=== PATIENT | male | born 1995 | race Caucasian/White ===

== ENCOUNTER 2016-06-17 17:17 | Emergency (ER) | payer OTHER ==
[~2016-06-17] VITALS: Ht 180.3 cm; Wt 104.3 kg
[~2016-06-17 17:17] MED LIST: CYCLOBENZAPRINE10 M1 PO; FLEXERIL10 MG PO; HYDROCODONE/ACE1 TA1 PO; MOBIC15 M1 PO; TRAMADOL HCL50 M1 PO; VICODIN5-300 PO
[2016-06-17 17:23] VITALS: BP 130/85
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
--- NOTE | 2016-06-17 18:04 | RADIOLOGY REPORT ---
EXAMINATION: XR SHOULDER, LEFT CLINICAL INFORMATION: Pain. No history of trauma. COMPARISON: Chest x-ray dated 06/10/2009 TECHNIQUE: 4 views of the left shoulder. FINDINGS: Normal bony mineralization. No evidence of acute fracture or dislocation. Normal appearance of the acromioclavicular and glenohumeral joints. Normal round contour of the humeral head. Visualized left ribs and visualized portions of the left lung appear unremarkable. IMPRESSION: Normal left shoulder.
[2016-06-17] MEDS ORDERED: TRAMADOL HCL50 M1 PO (18:17)
[2016-06-17] MEDS ORDERED: IBUPROFEN600 M1 PO (18:17)
[2016-06-17] MEDS ORDERED: CYCLOBENZAPRINE10 M1 PO (18:17)
== END 2016-06-17 18:34 ==
LOC: ERH 17:17
DX: S46.912A Strain of unspecified muscle, fascia and tendon at shoulder and upper arm level, left arm, initial encounter (principal); X58.XXXA Exposure to other specified factors, initial encounter; Y93.H1 Activity, digging, shoveling and raking
CPT/HCPCS: 73030-LT

== ENCOUNTER 2016-10-04 14:30 | Inpatient (IN) | payer OTHER ==
[~2016-10-04] VITALS: Ht 177.8 cm; Wt 105.7 kg
[~2016-10-04 14:30] MED LIST changes: +IBUPROFEN600 M1 PO
--- NOTE | 2016-10-04 14:30 | NUR ---
TRIAGE: 20 Y/O MALE BIBA FROM HOME. LAST SEEN LAST NIGHT. UPON EMS ARRIVAL, PATIENT UNRESPONSIVE WITH AGONAL RESPIRATIONS. PATIENT GIVEN INTRANASAL NARCAN AT THAT TIME. UNKNOWN DRUG USE. PUPILS PINPOINT UPON ARRIVAL. BAG VALVE MASK AT PRESENT. EMS PREVIOUSLY UNABLE TO INTUBATE IN THE FIELD. INTUBATION TRAY AND RSI MEDICATIONS AT BEDSIDE FOR DR JONES TO ATTEMPT INTUBATION.
--- NOTE | 2016-10-04 14:40 | NUR ---
SECOND IV EST #18 TO LAC - DIFFICULT ACCESS NOTED. 2 SST, 2 LAV, 1 BLUE, 1 BREY TOP TUBE SENT TO LAB. MUÑIZ INSERTED PER CRITICALLY ILL PATIENT ORDERS. URINE TRIO SENT TO LAB. DR JONES REMAINS AT BEDSIDE. RESPIRATORY REMAINS AT BEDSIDE. VENTILATOR CONNECTED. RESP RATE 16; 80% O2, SPO2 94-96%.
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
--- NOTE | 2016-10-04 14:59 | NUR ---
10MG VECURONIUM ADMINISTERED PER DR JONES. .5 MG ATIVAN ADMINISTERED PER DR JONES.
[2016-10-04 15:05] LABS: ABSOLUTE BASOPHIL COUNT 0 /CUMM (0.0-0.2); ABSOLUTE EOSINOPHIL COUNT 0 /CUMM (0.0-0.7); ABSOLUTE MONOCYTE COUNT 0.1 /CUMM (0.10-0.60); BASOPHIL % 0.1 % (0.0-2.0); EOSINOPHIL % 0.1 % (0-5); HEMATOCRIT 45.3 % (42-52); MEAN CORPUSCULAR HGB 29.6 PG (27.0-31.0); MEAN CORPUSCULAR HGB CONC 32.6 G/DL (33.0-37.0); MEAN PLATELET VOLUME 8.8 FL (7.4-10.4); PLATELET COUNT 361 /CUMM (130-400); RBC DISTRIBUTION WIDTH 13.2 % (11.5-14.5); RED BLOOD CELL CT 4.98 /CUMM (4.70-6.10); WHITE BLOOD CELL COUNT 11.1 /CUMM (4.8-10.8)
[2016-10-04 15:13] LABS: GRANULOCYTE % 89.5 % (42.2-75.2)
--- NOTE | 2016-10-04 15:24 | NUR ---
CRITICAL TEST RESULTS [id number] MIKKI BRICE 20 M TESTS AND RESULTS: potassium 6.3; lactic acid 3.4 Results received and read back by: CAR LANE Results received date and time: 10/04/16 1525 The following provider was notified of the results, and read the results back: dr mathias Notified date and time: 10/04/16 at 1523
--- NOTE | 2016-10-04 15:34 | NUR ---
1 mg ativan and 10mg labetolol administered at this time.
--- NOTE | 2016-10-04 15:46 | NUR ---
INCREASED TO 100% O2 ON VENTILATOR. SPO2 84-85%. RESP RATE 16. REMAINS SEDATED. REMAINS ON READINESS PARAPROFESSIONAL: SINUS TACHYCARDIA, RATE 112.
--- NOTE | 2016-10-04 15:55 | RADIOLOGY REPORT ---
EXAMINATION: XR CHEST PORTABLE CLINICAL INFORMATION: Status post ET tube placement. COMPARISON: None. TECHNIQUE: Portable frontal view of the chest was obtained. FINDINGS: The tip of the endotracheal tube is located within the proximal part of the right main bronchus. Bilateral diffuse nonspecific airspace opacities are noted predominantly at both mid to lower lung mora, may represent edema versus infection. There is no definite pleural effusion present. The cardiomediastinal silhouette is within normal limits, given the technique. IMPRESSION: The tip of the endotracheal tube is located within the proximal part of the right main bronchus and needs to be repositioned. Nonspecific bilateral airspace disease. This critical result was discussed with Dr. Bajwa at 3:50 PM on 10/04/2016 and it was ascertained that the content and urgency of the report was understood at the time of direct communication.
--- NOTE | 2016-10-04 15:57 | NUR ---
ATTEMPT FOR ANOTHER BLOOD PRESSURE, NO BLOOD PRESSURE AUSCULTATED. NO PULSES NOTED. CPR INITIATED.
--- NOTE | 2016-10-04 15:59 | NUR ---
1 ROUND EPINEPHRINE INITIATED. CPR CONTINUES.
--- NOTE | 2016-10-04 16:01 | NUR ---
PULSES PALPATED. CPR ENDED AT THIS TIME. ET TUBE REPOSITIONED AT 24CM ON THE RIGHT. SPO2 87%
--- NOTE | 2016-10-04 16:18 | NUR ---
PATIENT APPEARS TO BE MORE ALERT, FIGHTING THE ET TUBE, BITING THE ET TUBE. 5MG VECURONIUM ADMIN PER DR JONES. RESP THERAPY REMAINS AT BEDSIDE. ATTMEPTING ABG AT THIS TIME. NORMAL SALINE BOLUSES CONTINUE TO INFUSE.
--- NOTE | 2016-10-04 16:29 | NUR ---
ABG RESULTED. DR JONES AND DR KRISHNAN AWARE.
--- NOTE | 2016-10-04 16:33 | NUR ---
LEVOPHED DRIP INITIATED PERIPHERALLY AT THIS TIME. 5MCG/MIN. DR JONES AT BEDSIDE TO ATTEMPT CENTRAL LINE ACCESS VIA RIGHT GROIN.
--- NOTE | 2016-10-04 16:43 | NUR ---
VENTILATOR RATE INCREASED TO 24/MIN BY RESP THERAPY PER DR KRISHNAN SECONDARY TO ABG RESULTS.
--- NOTE | 2016-10-04 16:49 | NUR ---
CENTRAL LINE ANCHORED AT THIS TIME BY DR JONES - RIGHT JANG.
--- NOTE | 2016-10-04 16:50 | NUR ---
levophed drip increased to 7mcg/min
--- NOTE | 2016-10-04 16:55 | NUR ---
levophed drip increased to 9 mcg/min.
--- NOTE | 2016-10-04 17:00 | NUR ---
levophed drip increased to 11 mcg/ min.
--- NOTE | 2016-10-04 17:20 | NUR ---
ICU HOUSESTAFF AT BEDSIDE FOR EVAL.
--- NOTE | 2016-10-04 17:44 | NUR ---
LEVOPHED DRIP INCREASED TO 19MCG/MIN.
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
--- NOTE | 2016-10-04 18:05 | NUR ---
DR KRISHNAN AT BEDSIDE. INFORMED LEVOPHED DRI AT 19MCG/MIN. AZITHROMYCIN INFUSING.
--- NOTE | 2016-10-04 18:08 | NUR ---
LEVOPHED DRIP MAXED OUT PER PROTOCOL AT 20MCG/MIN.
--- NOTE | 2016-10-04 18:24 | NUR ---
VASOPRESSIN DRIP INITIATED AT THIS TIME. PRESSURE 54/PALP VIA DOPPLER.
--- NOTE | 2016-10-04 18:38 | NUR ---
SODIUM BICARB AMP ADMIN PER DR KRISHNAN.
--- NOTE | 2016-10-04 18:48 | NUR ---
RESP THERAPY AT BEDSIDE TO OBTAIN REPEAT ABG.
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
--- NOTE | 2016-10-04 19:31 | NUR ---
Emergency Dept UC Admit Note: To be admitted to [facility] by DR KRISHNAN with DRUG OVERDOSE as the diagnosis, to ICU location. 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
--- NOTE | 2016-10-04 19:45 | NUR ---
Provided supportive and prayerful contact to pt's family. Rogelio
--- NOTE | 2016-10-04 19:47 | NUR ---
REPORT CALLED TO GENTRY PATTERSON.
--- NOTE | 2016-10-04 19:50 | RADIOLOGY REPORT ---
EXAMINATION: XR PORTABLE CHEST CLINICAL INFORMATION: Aspiration pneumonia. Respiratory failure. COMPARISON: Multiple priors, most recent chest radiograph done earlier the same day at 3:13 p.m. TECHNIQUE: Portable frontal view of the chest was obtained. FINDINGS: The endotracheal tube has been retracted and the tip now lies approximately 4.1 cm proximal to the mercy. An endogastric tube is seen extending below the left hemidiaphragm. There are bilateral patchy airspace opacities, unchanged since the prior examination. No pleural effusion or pneumothorax. Stable cardiomediastinal silhouette. IMPRESSION: 1. Interval retraction of the endotracheal tube which now lies approximately 4.1 cm proximal to the mercy. Placement of an endogastric tube which is in good position. 2. Unchanged bilateral patchy airspace opacities.
--- NOTE | 2016-10-04 19:59 | NUR ---
RESP THERAPY AT BEDSIDE TO ASSIST WITH TRANSPORT. 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 REMAINS SEDATED AND MEDICALLY RESTRAINED PER ORDERS. ABG OPBTAINED AT THIS TIME. REPEAT BLOODWORK OBTAINED AT THIS TIME. VASOPRESSIN AND LEVOPHED CONTINUE TO INFUSE.
--- NOTE | 2016-10-04 20:06 | NUR ---
PT TRANSPORTED TO FLOOR
--- NOTE | 2016-10-04 20:30 | NUR ---
ADMISSION NOTE- Patient arrives from ER on stretcher with TELEHEALTH COORDINATOR. Transferred to ICU bed and placed on monitors without incident. Patient is unresponsive, SAS-1 at this time. Pupils are pinpoint and fixed. Patient is ST on monitor and BP is 80's systolic via autocuff and doppler. Tyrell gtt initiated at this time. Patient arrives intubated with #8 to the Right at 23cm, settings are: AC- 24, TV- 600, FiO2- 100% and PEEP of 10. There are clear thin secretions noted orally. OGT is in place at 58cm at the lip. Patient is diaphoretic and rectal temp is found to be 101.6. There is an IV in the LAC that is patent, and RG TLC is patent. Mother and father are at the bedside and are updated on patient status and plan of care. Patient does have a prince in place with clear, light wolf urine noted. No acute distress at this time. Will cont to monitor.
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
--- NOTE | 2016-10-04 21:03 | CT SCAN REPORT ---
EXAMINATION: CT CHEST WITHOUT CONTRAST CT ABDOMEN AND PELVIS WITHOUT CONTRAST CLINICAL INFORMATION: Unresponsive episode. Evaluate for aspiration pneumonia, intra-abdominal process. Lactic acidosis. Overdose. COMPARISON: Multiple priors, most recent chest radiograph done earlier the same day. TECHNIQUE: Contiguous axial thin section helical images of the chest, abdomen and pelvis were performed without contrast. The data set was reformatted in the coronal and sagittal planes and reviewed on an independent workstation. DLP: 1599.31 mGy-cm FINDINGS: LUNGS: There are large bilateral lower lobe airspace consolidations with additional patchy airspace consolidations within the right middle lobe and bilateral upper lobes. These findings are consistent with pneumonia and could represent aspiration pneumonia in the appropriate clinical setting. MEDIASTINUM: The endotracheal tube is noted with its tip terminating above the mercy. A nasogastric tube is seen with its tip within the stomach. There is no cardiomegaly or pericardial effusion. No mediastinal or hilar lymphadenopathy is noted. PLEURA: There is no pleural effusion or pneumothorax. AXILLA: No lymphadenopathy. LIVER, GALLBLADDER, BILIARY TREE: There is no focal hepatic lesion. There is no intrahepatic biliary ductal dilatation. The gallbladder is unremarkable with no radiopaque stones, gallbladder wall thickening, or pericholecystic free fluid. PANCREAS: There is mild nonspecific fat stranding adjacent to the tail of the pancreas. This could represent pancreatitis in the appropriate clinical setting. Correlation with amylase and lipase are recommended. SPLEEN: The spleen is unremarkable. A 1.5 cm splenule is noted. ADRENAL GLANDS: There is mild nonspecific fat stranding adjacent to the left adrenal gland. This could be related to the pancreas. The right adrenal gland is unremarkable. KIDNEYS, URETERS AND BLADDER: The kidneys are normal in size and attenuation. No renal lesion is identified. There is no hydronephrosis or nephrolithiasis. There is no hydroureter. The urinary bladder is collapsed with a Castanon catheter in place. BOWEL LOOPS: An enteric gastric tube is seen with its tip terminating within the stomach. There is no small or large bowel obstruction. The appendix is unremarkable. There is no intra-abdominal free air or free fluid. LYMPHOVASCULAR STRUCTURES: There is no significant lymphadenopathy. The abdominal aorta is nondilated. A central venous catheter is seen within the right inguinal vein. PELVIC VISCERA: The prostate and seminal vesicles are unremarkable. BONES: There are bone islands within the pelvis. No fracture is identified. ADDITIONAL FINDINGS: None IMPRESSION: 1. Large bilateral lower lobe airspace consolidations with additional patchy consolidations within the right middle lobe and bilateral upper lobes. These findings are consistent with pneumonia and could represent aspiration pneumonia in the appropriate clinical setting. 2. Endotracheal tube and nasogastric tube in proper position. Right inguinal pain central venous catheter in good position. 3. Nonspecific fat stranding adjacent to the tail of the pancreas. This could represent pancreatitis in the appropriate clinical setting. Correlation with amylase and lipase are recommended. 4. Nonspecific fat stranding adjacent to the left adrenal gland. This could be related to the pancreas.
[2016-10-05 02:36] LABS: PT 15.1 SEC (9.4-12.5)
--- NOTE | 2016-10-05 03:42 | NUR ---
Late entry 2044- On admission to ICU, Narcan gtt initiated for SAS of 1 and is increased per protocol. At approximately 2215- patient awakens and is SAS 7, very dangerously agitated. He is kicking and lifting self off of bed, pulling at restraints and fully awake. He is difficult to orient and console at this time. Parents at bedside. At this time, 1 time dose of vecuronium is given and fentanyl gtt is initiated per protocol. After initial Fentanyl bolus is given patient SAS is 3. Pupils checked at this time and are found to be 6mm, equal and sluggish but reactive to light. Soft mainor wrists remain in place, all vasopressors remain on. Will cont to monitor.
[2016-10-05 05:07] LABS: ABSOLUTE BASOPHIL COUNT 0 /CUMM (0.0-0.2); ABSOLUTE EOSINOPHIL COUNT 0 /CUMM (0.0-0.7); BASOPHIL % 0 % (0.0-2.0); EOSINOPHIL % 0 % (0-5); MEAN CORPUSCULAR HGB CONC 33.7 G/DL (33.0-37.0)
[2016-10-05 05:13] LABS: ABSOLUTE GRANULOCYTE CT 18.7 /CUMM (1.4-6.5); ABSOLUTE LYMPH COUNT 0.9 /CUMM (1.2-3.4); ABSOLUTE MONOCYTE COUNT 0.7 /CUMM (0.10-0.60); GRANULOCYTE % 91.9 % (42.2-75.2); MEAN CORPUSCULAR VOLUME 89.1 FL (80.0-94.0); MEAN PLATELET VOLUME 9.3 FL (7.4-10.4); PLATELET COUNT 277 /CUMM (130-400); RED BLOOD CELL CT 4.46 /CUMM (4.70-6.10)
[2016-10-05 05:20] LABS: WHITE BLOOD CELL COUNT 20.3 /CUMM (4.8-10.8)
[2016-10-05 05:22] LABS: HEMATOCRIT 39.7 % (42-52)
--- NOTE | 2016-10-05 06:00 | RADIOLOGY REPORT ---
EXAMINATION: XR PORTABLE CHEST CLINICAL INFORMATION: Endotracheal tube positioning. COMPARISON: 10/04/2016 TECHNIQUE: Portable frontal view of the chest was obtained. FINDINGS: The endotracheal tube terminates 5 cm above the mercy. The enteric tube extends into the stomach. Cardiac leads overlie the chest. Low lung volumes with hazy basilar opacities. This is similar to previous. No pneumothorax. The cardiomediastinal silhouette is within normal limits. IMPRESSION: Endotracheal tube terminating 5 cm above the mercy. Persistent hazy opacities of the mid to lower lungs, more completely evaluated on the recent CT.
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
[2016-10-05 08:00] VITALS: BP 120/76
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
--- NOTE | 2016-10-05 09:31 | ULTRASOUND REPORT ---
EXAMINATION: DOPPLER VENOUS ULTRASOUND UPPER EXTREMITY, RIGHT CLINICAL INFORMATION: Right upper extremity swelling. COMPARISON: None. TECHNIQUE: Grayscale, Doppler and spectral analysis of the upper extremity and neck was performed. FINDINGS: There is no evidence for a deep venous thrombosis within the visualized upper extremity and neck veins. There is normal flow, compression and augmentation. There is thrombus identified within the cephalic vein within the upper arm. IMPRESSION: No evidence for deep venous thrombosis within the right upper extremity. There is thrombus identified within the cephalic vein. Please note that this is not considered to be a superficial vein of the upper extremity.
--- NOTE | 2016-10-05 09:50 | PN- CRCU ---
Subjective HPI/Critical Care Issues: Patient seen and examined at bedside this AM. He remains intubated but is more active than on last evaluation. He has been titrated off of two pressors and remains on levophed. He has also been given IV vecuronium for agitation. He continues on bicarb drip, fentanyl drip, unasyn, and NS at 150 cc/h. His parents at bedside 24 Hour Events: community health nurse: No overnight events. Vital signs last 24 hours: T 100.4-101.6, HR 98-106, RR 24, BP 96-153/53-71, O2 saturation 98-100% on AC 24 TV 600 FiO2 70 10 PEEP. Total intake last 24 hours: 3787 cc Total output last 24 hours: 1500 cc Objective Current Medications: Current Medications Sig/Kendra Start time Last Medication Dose Route Stop Time Status Admin Acetaminophen 325 MG Q6P PRN 10/04 1830 AC PO Ampicillin Sodium/ 0 .STK-MED ONE 10/04 192 DC Sulbactam Sodium .ROUTE Ampicillin Sodium/ 3,000 MG Q6 10/04 1911 AC 10/05 Sulbactam Sodium IV 0516 Sodium Chloride 100 ML Azithromycin 500 MG ONCE ONE 10/04 1600 DC 10/04 Sodium Chloride 250 ML IV 10/04 1659 1750 Calcium Gluconate 0 .STK-MED ONE 10/04 1925 DC IV Calcium Gluconate 1 GM ONCE ONE 10/04 1900 DC 10/04 Sodium Chloride 100 ML IV 10/04 195 1937 Ceftriaxone Sodium 0 .STK-MED ONE 10/04 1802 DC .ROUTE Ceftriaxone Sodium 1,000 MG ONCE ONE 10/04 1600 DC 10/04 IV 10/04 1601 1750 Dextrose 25 GM ONCE ONE 10/04 1900 DC 10/04 IV 10/04 190 1930 Epinephrine 1 MG ONCE ONE 10/04 1630 DC 10/04 IV 10/04 1631 1641 Epinephrine 0.5 MG ONCE ONE 10/04 1630 DC 10/04 IV 10/04 1631 1641 Etomidate 0 .STK-MED ONE 10/04 1528 DC IV Fentanyl Citrate 1,000 MCG Q24H 10/04 1930 AC 10/05 Dextrose/Water 250 ML IV 0349 Fentanyl Citrate 0 .STK-MED ONE 10/04 1930 DC .ROUTE Heparin Sodium 5,000 UNIT Q8 10/04 2200 AC 10/05 (Porcine) SC 0528 Hydrocortisone 100 MG Q8 10/04 2200 AC 10/05 Sodium Succinate IV 10/05 1401 0528 Hydromorphone HCl 0.5 MG Q4P PRN 10/04 1830 AC IV Insulin Human Regular 10 UNITS ONCE ONE 10/04 1900 DC 10/04 IV 10/04 1901 1930 Ketorolac 15 MG Q6P PRN 10/04 1830 AC Tromethamine IV Labetalol HCl 0 .STK-MED ONE 10/04 1533 DC IV Labetalol HCl 10 MG ONCE ONE 10/04 1530 DC 10/04 IV 10/04 1531 1534 Levetiracetam 500 MG Q12 PRN 10/04 1915 AC N/A 1 UNIT IV Lorazepam 0 .STK-MED ONE 10/04 1821 DC .ROUTE Lorazepam 0 .STK-MED ONE 10/04 1533 DC .ROUTE Lorazepam 1 MG ONCE ONE 10/04 1530 DC 10/04 IV 10/04 1531 1534 Lorazepam 0 .STK-MED ONE 10/04 1502 DC .ROUTE Lorazepam 0.5 MG ONCE ONE 10/04 1500 DC 10/04 IV 10/04 1501 1501 Magnesium Sulfate 1 GM Q2H 10/05 0730 AC 10/05 Dextrose/Water 100 ML IV 10/05 1129 0849 Naloxone HCl 4 MG Q24H 10/04 1900 DC Sodium Chloride 1,000 ML IV Naloxone HCl 4 MG Q24H 10/04 1845 DC 10/04 Sodium Chloride 1,000 ML IV 2053 Naloxone HCl 2 MG ONCE ONE 10/04 1500 DC 10/04 IV 10/04 1501 1454 Naloxone HCl 4 MG ONCE ONE 10/04 1500 CAN Sodium Chloride 1,000 ML IV 10/04 1501 Naloxone HCl 0 .STK-MED ONE 10/04 1447 DC .ROUTE Norepinephrine 4 MG Q24H 10/05 0700 AC 10/05 Sodium Chloride 250 ML IV 0851 Norepinephrine 4 MG .STK-MED ONE 10/04 2016 DC IV 10/04 2017 Norepinephrine 4 MG Q24H 10/04 1730 DC 10/05 Sodium Chloride 250 ML IV 0346 Norepinephrine 8 MG Q24H 10/04 1630 DC Sodium Chloride 250 ML IV Norepinephrine 0 .STK-MED ONE 10/04 1610 DC IV Pantoprazole Sodium 0 .STK-MED ONE 10/04 1925 DC IV Pantoprazole Sodium 40 MG DAILY 10/04 1905 AC 10/05 IV 0855 Phenylephrine HCl 40 MG .STK-MED ONE 10/04 2043 DC IM 10/04 2044 Phenylephrine HCl 40 MG Q24H 10/04 1930 DC 10/04 Sodium Chloride 250 ML IV 2044 Sodium Bicarbonate 150 MEQ CONTINOUS INFUSION 10/04 2245 AC 10/05 Dextrose/Water 1,000 ML IV 0230 Sodium Bicarbonate 75 MEQ CONTINOUS INFUSION 10/04 1930 DC 10/04 Sodium Chloride 1,000 ML IV 2053 Sodium Bicarbonate 50 MEQ ONCE ONE 10/04 1845 DC 10/04 IV 10/04 1846 1840 Sodium Chloride 1,000 ML Q6H 10/04 1900 AC 10/05 IV 0851 Sodium Chloride 1,000 ML BOLUS ONE 10/04 1500 DC 10/04 IV 10/04 1559 1501 Vasopressin 40 UNITS Q16H 10/04 1815 DC 10/04 Sodium Chloride 100 ML IV 1824 Vecuronium Kula 10 MG ONCE PRN 10/05 0230 AC IV Vecuronium Kula 10 MG Q24H 10/05 0100 DC Dextrose/Water 100 ML IV Vecuronium Kula 10 MG ONCE PRN 10/04 2345 AC 10/05 IV 0021 Vecuronium Kula 10 MG ONCE ONE 10/04 2245 DC 10/04 IV 10/04 2246 2237 Vecuronium Kula 10 MG ONCE PRN 10/04 1930 AC 10/04 IV 1945 Vecuronium Kula 0 .STK-MED ONE 10/04 1620 DC IV Vecuronium Kula 5 MG ONCE ONE 10/04 1615 DC 10/04 IV 10/04 1616 1641 Vecuronium Kula 0 .STK-MED ONE 10/04 1528 DC IV Vecuronium Kula 10 MG ONCE ONE 10/04 1500 DC 10/04 IV 10/04 1501 1501 Vital Signs & I&O Last 24 Hrs of Vitals and I&O: Vital Signs Date Time Temp Pulse Resp B/P B/P Pulse O2 O2 Flow FiO2 Mean Ox Delivery Rate 10/05 0809 70 10/05 0613 70 10/05 0400 100 Ventilator 70% 10/05 0346 99 161/64 10/05 0254 70 10/05 0105 90 10/05 0009 108 114/64 10/05 0000 100 Ventilator 90% 10/04 2220 90 10/04 2044 105 74/58 10/04 2030 99 Ventilator 100% 10/04 1950 116/57 10/04 1922 98.6 114 24 81/50 99 Ventilator 100% 10/04 1902 116 24 70/45 99 Ventilator 100% 10/04 1850 121 24 75/37 99 Ventilator 100% 10/04 1847 133 24 67/34 99 Ventilator 100% 10/04 1835 99.6 118 24 87/39 97 Ventilator 100% 10/04 1824 124 24 54/00 97 Ventilator 100% 10/04 1815 99.0 115 24 50/00 96 Ventilator 100% 10/04 1807 98.8 117 54/00 10/04 1800 115 52/00 10/04 1752 122 50/00 10/04 1744 117 48/00 10/04 1738 98.0 122 18 50/00 93 Ventilator 100% 10/04 1732 117 50/00 10/04 1725 112 50/0 10/04 1716 117 48/00 10/04 1709 115 50/00 10/04 1700 115 48/00 10/04 1651 111 48/00 10/04 1643 117 48/00 10/04 1638 115 46/00 10/04 1633 98.0 112 20 48/00 10/04 1630 98.0 109 20 48/00 92 Ventilator 100% 10/04 1610 100 10/04 1610 110 54/00 10/04 1600 0 10/04 1550 100 10/04 1534 141 16 170/85 10/04 1523 80 10/04 1517 141 16 170/85 94 Ventilator 80% 10/04 1502 140 184/96 10/04 1436 98.2 130 10 82/42 10/04 1435 94 Ventilator 80% Intake & Output 10/05 1600 10/05 0800 10/05 0000 Intake Total 3070 711 Output Total 1000 500 Balance 2070 211 Intake, IV 3070 711 Output, Urine 1000 500 Patient 253 lb Weight Weight Bed scale Measurement Method Laboratory Tests 10/05 10/05 0800 0430 Chemistry Sodium (137 - 145 mmol/L) 139 Potassium (3.5 - 5.1 mmol/L) 4.3 Chloride (98 - 107 mmol/L) 106 Carbon Dioxide (22 - 30 mmol/L) 20 L Anion Gap (5 - 16) 13 BUN (9 - 20 mg/dL) 31 H Creatinine (0.7 - 1.2 mg/dL) 2.1 H Estimated GFR (>60 ml/min) 40 L Glucose (65 - 99 mg/dL) 132 H Calcium (8.4 - 10.2 mg/dL) 7.4 L Phosphorus (2.5 - 4.5 mg/dL) 3.1 Magnesium (1.6 - 2.3 mg/dL) 1.5 L Total Bilirubin (0.2 - 1.3 mg/dL) 1.8 H AST (17 - 59 U/L) 603 H ALT (21 - 72 U/L) 583 H Troponin I Pending Albumin (3.5 - 5.0 g/dL) 2.8 L Hematology CBC w Diff MAN DIFF ORDERED WBC (4.8 - 10.8 /CUMM) 20.3 H RBC (4.70 - 6.10 /CUMM) 4.46 L Hgb (14.0 - 18.0 G/DL) 13.4 L Hct (42 - 52 %) 39.7 L MCV (80.0 - 94.0 FL) 89.1 MCH (27.0 - 31.0 PG) 30.0 RDW (11.5 - 14.5 %) 13.0 Plt Count (130 - 400 /CUMM) 277 MPV (7.4 - 10.4 FL) 9.3 Gran % (42.2 - 75.2 %) 91.9 H Lymphocytes % (20.5 - 51.1 %) 4.5 L Monocytes % (1.7 - 9.3 %) 3.6 Eosinophils % (0 - 5 %) 0 Basophils % (0.0 - 2.0 %) 0 L Absolute Granulocytes (1.4 - 6.5 /CUMM) 18.7 H Segmented Neutrophils (42.2 - 75.2 %) 65 Band Neutrophils (0.0 - 5.0 %) 25 H Absolute Lymphocytes (1.2 - 3.4 /CUMM) 0.9 L Lymphocytes (20.5 - 51.1 %) 1 L Monocytes (1.7 - 9.3 %) 5 Absolute Monocytes (0.10 - 0.60 /CUMM) 0.7 H Absolute Eosinophils (0.0 - 0.7 /CUMM) 0 Absolute Basophils (0.0 - 0.2 /CUMM) 0 Metamyelocytes (0.0 - 1.0 %) 4 H Platelet Estimate (ADEQUATE) ADEQUATE Basophilic Stippling 1+ PUBS MCHC (33.0 - 37.0 G/DL) 33.7 10/05 10/05 10/04 10/04 0330 0215 2250 2250 Blood Gas pH (7.35 - 7.45 PH) 7.33 L pCO2 (35 - 45 TORR) 29 L pO2 (80 - 100 TORR) 94 HCO3 (21 - 28 MEQ/L) 15 L ABG O2 Sat (Measured) (>96.0 %) 97.0 P-50 (Temp Corrected) N Carboxyhemoglobin (1.5 - 5.0 %) 0.3 L O2 Concentration % .70 Respiration Rate (BPM) 24 O2 Delivery Method VENT Vent Mode A/C Expiratory Pressure (CMH2O/P) 10 Tidal Volume (CC) 600 Chemistry Sodium (137 - 145 mmol/L) 136 L Potassium (3.5 - 5.1 mmol/L) 5.1 5.3 H Chloride (98 - 107 mmol/L) 107 Carbon Dioxide (22 - 30 mmol/L) 17 L Anion Gap (5 - 16) 12 BUN (9 - 20 mg/dL) 38 H Creatinine (0.7 - 1.2 mg/dL) 3.0 H Estimated GFR (>60 ml/min) 27 L Glucose (65 - 99 mg/dL) 91 Lactic Acid (0.7 - 2.1 mmol/L) 2.6 H 3.0 H Calcium (8.4 - 10.2 mg/dL) 7.5 L Phosphorus (2.5 - 4.5 mg/dL) 4.5 Magnesium (1.6 - 2.3 mg/dL) 1.6 Total Bilirubin (0.2 - 1.3 mg/dL) 1.5 H AST (17 - 59 U/L) 542 H ALT (21 - 72 U/L) 507 H Troponin I (<0.11 ng/ml) 1.46 *H Albumin (3.5 - 5.0 g/dL) 2.9 L Coagulation PT (9.4 - 12.5 SEC) 15.1 H INR (0.90 - 1.17) 1.44 H Miscellaneous Phlebotomy Draw Site LEFT RADIAL 10/04 Blood Gas pH (7.35 - 7.45 PH) 7.18 *L pCO2 (35 - 45 TORR) 41 pO2 (80 - 100 TORR) 108 H HCO3 (21 - 28 MEQ/L) 15 L ABG O2 Sat (Measured) (>96.0 %) 96.0 P-50 (Temp Corrected) N Carboxyhemoglobin (1.5 - 5.0 %) 0.7 L O2 Concentration % 100% Temperature (97.0 - 100.0 FARH) 97.7 Respiration Rate (BPM) 24 O2 Delivery Method ESPRIT Vent Mode AC Expiratory Pressure (CMH2O/P) 10 Tidal Volume (CC) 600 Miscellaneous Phlebotomy Draw Site RIGHT RADIAL Urines Urine Color (YEL,AMB,STR) YEL Urine Clarity (CLEAR) CLEAR Urine pH (5.0 - 8.0) 6.0 Ur Specific Perry (1.001 - 1.035) 1.025 Urine Protein (NEG,<30 MG/DL) 30 H Urine Ketones (NEG) NEG Urine Nitrite (NEG) NEG Urine Bilirubin (NEG) NEG Urine Urobilinogen (0.1 - 1.0 EU/dl) 0.2 Ur Leukocyte Esterase (NEG) NEG Ur Microscopic SEDIMENT EXAMINED Urine RBC (0 - 5 /HPF) 5-10 H Urine WBC (0 - 2 /HPF) 1-3 H Urine Bacteria (NEG/NONE) MANY H Hyaline Casts (0/LPF) MANY H Granular Casts (NONE /LPF) 3-5 H Urine Hemoglobin (NEG) LARGE H Urine Glucose (N MG/DL) NEG 10/04 1900 1615 Blood Gas pH (7.35 - 7.45 PH) 7.15 *L pCO2 (35 - 45 TORR) 50 H pO2 (80 - 100 TORR) 80 HCO3 (21 - 28 MEQ/L) 17 L Bicarbonate Actual (22 - 26 MEQ/L) 20 L ABG O2 Sat (Measured) (>96.0 %) 92.0 L Mixed VBG pH (7.31 - 7.41 PH) 7.11 L Mixed VBG pCO2 (41 - 51 TORR) 65 H Mixed VBG O2 Saturation (35 - 45 TORR) 24 L Carboxyhemoglobin (1.5 - 5.0 %) 0.8 L 1.7 O2 Concentration % 100% 100% Respiration Rate (BPM) 24 20 O2 Delivery Method ESPRIT ESPRIT VENT Vent Mode AC AC Expiratory Pressure (CMH2O/P) 10 10 Tidal Volume (CC) 600 600 Chemistry Potassium (3.5 - 5.1 mmol/L) 5.1 Lactic Acid (0.7 - 2.1 mmol/L) 2.5 H Troponin I (<0.11 ng/ml) 1.03 *H Miscellaneous Phlebotomy Draw Site L FEM RIGHT RADIAL 10/04 10/04 1455 1455 Chemistry Sodium (137 - 145 mmol/L) 134 L Potassium (3.5 - 5.1 mmol/L) 6.3 *H Chloride (98 - 107 mmol/L) 99 Carbon Dioxide (22 - 30 mmol/L) 20 L Anion Gap (5 - 16) 15 BUN (9 - 20 mg/dL) 36 H Creatinine (0.7 - 1.2 mg/dL) 3.4 H Estimated GFR (>60 ml/min) 23 L BUN/Creatinine Ratio (7 - 25 %) 10.6 Glucose (65 - 99 mg/dL) 151 H Lactic Acid (0.7 - 2.1 mmol/L) 3.4 H Calcium (8.4 - 10.2 mg/dL) 8.3 L Total Bilirubin (0.2 - 1.3 mg/dL) 1.3 AST (17 - 59 U/L) 233 H ALT (21 - 72 U/L) 276 H Alkaline Phosphatase (< 127 U/L) 73 Creatine Kinase (55 - 170 U/L) 371 H Total Protein (6.3 - 8.2 g/dL) 5.9 L Albumin (3.5 - 5.0 g/dL) 3.6 Globulin (1.9 - 4.2 gm/dL) 2.3 Albumin/Globulin Ratio (1.1 - 2.2 %) 1.6 Amylase (30 - 110 U/L) 2069 H Lipase (23 - 300 U/L) 235 Hematology CBC w Diff NO MAN DIFF REQ WBC (4.8 - 10.8 /CUMM) 11.1 H RBC (4.70 - 6.10 /CUMM) 4.98 Hgb (14.0 - 18.0 G/DL) 14.8 Hct (42 - 52 %) 45.3 MCV (80.0 - 94.0 FL) 91.0 MCH (27.0 - 31.0 PG) 29.6 RDW (11.5 - 14.5 %) 13.2 Plt Count (130 - 400 /CUMM) 361 MPV (7.4 - 10.4 FL) 8.8 Gran % (42.2 - 75.2 %) 89.5 H Lymphocytes % (20.5 - 51.1 %) 9.4 L Monocytes % (1.7 - 9.3 %) 0.9 L Eosinophils % (0 - 5 %) 0.1 Basophils % (0.0 - 2.0 %) 0.1 Absolute Granulocytes (1.4 - 6.5 /CUMM) 10.0 H Absolute Lymphocytes (1.2 - 3.4 /CUMM) 1.0 L Absolute Monocytes (0.10 - 0.60 /CUMM) 0.1 L Absolute Eosinophils (0.0 - 0.7 /CUMM) 0 Absolute Basophils (0.0 - 0.2 /CUMM) 0 PUBS MCHC (33.0 - 37.0 G/DL) 32.6 L Serology Hepatitis A IgM Ab (NONREACTIVE) Pending Hep Bs Antigen (NONREACTIVE) NONREACTIVE Hep B Core IgM Ab Conf (NONREACTIVE) Pending Hepatitis C Antibody (NONREACTIVE) Pending Toxicology Salicylates (0 - 20.0 mg/dL) < 1.0 Urine Opiates Screen (>2000 NG/ML) > 4000.00 H Methadone Screen (>300 NG/ML) < 40 Acetaminophen (10.0 - 30.0 ug/mL) < 10.0 L Barbiturate Screen (>200 NG/ML) 64 Ur Phencyclidine Scrn (>25 NG/ML) < 6.00 Amphetamines Screen (>1000 NG/ML) 315 U Benzodiazepines Scrn (>200 NG/ML) < 85 Urine Cocaine Screen (>300 NG/ML) > 1000.0 H Urine Cannabis Screen (>50 NG/ML) < 5.00 Serum Alcohol (<10 MG/DL) < 10.0 Microbiology Date/Time Procedure - Status Source Growth 10/04 2099 Surveillance Culture - RECD UPPER RESP 10/04 2099 Surveillance Culture - RECD GI 10/05 1911 Respiratory Culture - COLB LOWER RESP 10/05 1911 Gram Stain - COLB LOWER RESP 05/29 1730 Blood Culture - RECD BLOOD 10/04 1714 Blood Culture - RECD BLOOD 10/04 1554 Blood Culture - CAN BLOOD Cancelled: Cancelled via OE: Duplicate Order 10/04 1455 Urine Culture - RECD URINE ROUT SIGNIFICANT DATA Continues to be on mechanical ventilation Peak air pressure 20/80 PEEP of 10 On 70% FiO2 Creatinine is improved to 2.1 BUN is 31 anion gap is now 13 lactic acid which was 2.6 yesterday amylase lipase is significantly elevated magnesium was low his liver enzymes are elevated troponin 1.46 Tox screen reviewed White count 20,000 hemoglobin 13.491% segs 25% bands Recent ABG reviewed ABG done last night 7 05/16/1940 05/09/2007 Chest x-ray done this morning showed persistent haziness in the mid to lower lungs more compatible with recent CT Doppler showed no DVT there is a thrombus within the cephalic Quain CT of the head done showed sinusitis CT scan of the chest abdomen and pelvis reviewed showed large bilateral lower lobe airspace consolidation with Patchy consolidation in the right middle lobe and bilateral upper lobes consistent with pneumonia with aspiration nonspecific stranding in the tail of the pancreas nonspecific fat stranding in the left adrenal area Impression/Plan Impression/Plan Impression/Plan: Physical exam Patient was on 10 of PEEP respiratory rate of 24 and tidal volume was 600. Peak airway pressure was 28-30 including the PEEP. Pupils were small were reacting to light Neck was supple there was no JVD Heart S1-S2 was heard no significant murmur Chest showed bilateral rales with no significant wheezing with some rhonchi and transmitted sounds. Prolonged expiration Abdominal exam, was soft bowel sounds mild There was no significant edema. SIGNIFICANT DATA Chest x-ray initially did show bilateral pulmonary infiltrates suggestive of pulmonary edema with ET tube in the right mainstem bronchus which has been repositioned Blood work reviewed showed significant metabolic acidosis with acute renal insufficiency with creatinine of 3.4 potassium was 6.3 lactic acid was elevated. His bilirubin is 1.3 his AST ALT were elevated and urine tox screen was strongly positive for cocaine and morphine. His white count was 11.1 with a left shift. His ABG reviewed 7.15/50/80 subsequently his respiratory rate was increased to 24 stent volume is 600 and FiO2 is 1 days on PEEP of 10 Intravenous drips reviewed he is on levo fed 17 mics. IMPRESSION This is an unfortunate 20-year-old gentleman with history suggestive of polysubstance abuse now here with acute respiratory failure with recent cardiopulmonary arrest with unknown downtime most likely related to polysubstance abuse with overdose. Patient seems to be intoxicated with significant amount of cocaine and as well as morphine. His issues include * Acute respiratory failure with significant hemodynamic instability with multiple organ failure related to drug overdose with low flow state * Status post cardiopulmonary arrest with return of spontaneous circulation after 3-4 minutes with one dose of epinephrine, now with vasomotor instability with profound shock * Multiple organ failure including renal failure, Pancreatitis, coronary ischemia now with bilateral severe lung injury with aspiration pna * BIlateral pna, sinusitis * Probable significant anoxic brain injury * Morphine, cocaine overdose * Rule out other causes of profound hypotension including venous thromboembolism but this seems less likely * Vomiting sig aspiration pneumonitis * Pulmonary edema appears to be noncardiogenic with ARDS like picture * Acute renal failure RECOMMENDATION * Continue mechanical ventilator, reduce fio2 * Wean pressors * REduce bicarb drip today and turn off by this pm * Keep the mean airway pressure less than 30 * Intravenous fluids with D5 .45 ns at 75 cc per hr * IV proton pump inhibitor * Subcutaneous heparin * DOppler of both lower ext * Check cpk * Check lfts amlase lipase daily * Keep mag at 2, and phosphate at 3 * Ativan for agitation in the future for cocaine od * COnt fentanyl drip to avoid withdrawal * Affrin nasal spray bid for three days * OG tube, and start tube feeding in am not today * Cardio eval call * Echocardiogram * Unasyn high dose, check his labs this pm and adjust the dose * Daily solumedrol 40 daily dc hydrocortizone * Sputum culture * CHeck urinary leigenella and pneumo antigen * DC ketorolac, No further vecuronium Prognosis is still poor discussed with family extensively. Patient is critically ill total critical care time 50 mins minutes
[2016-10-05 12:31] LABS: ABSOLUTE BASOPHIL COUNT 0 /CUMM (0.0-0.2); ABSOLUTE EOSINOPHIL COUNT 0 /CUMM (0.0-0.7); ABSOLUTE GRANULOCYTE CT 15.4 /CUMM (1.4-6.5); ABSOLUTE LYMPH COUNT 0.8 /CUMM (1.2-3.4); BASOPHIL % 0.1 % (0.0-2.0); EOSINOPHIL % 0 % (0-5); GRANULOCYTE % 89.9 % (42.2-75.2); HEMATOCRIT 35.2 % (42-52); MEAN CORPUSCULAR HGB 29.8 PG (27.0-31.0); MEAN CORPUSCULAR HGB CONC 33.6 G/DL (33.0-37.0); MEAN CORPUSCULAR VOLUME 88.6 FL (80.0-94.0); MEAN PLATELET VOLUME 8.9 FL (7.4-10.4); PLATELET COUNT 243 /CUMM (130-400); RBC DISTRIBUTION WIDTH 12.5 % (11.5-14.5); RED BLOOD CELL CT 3.97 /CUMM (4.70-6.10); WHITE BLOOD CELL COUNT 17.1 /CUMM (4.8-10.8)
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
--- NOTE | 2016-10-05 15:03 | ULTRASOUND REPORT ---
EXAMINATION: US TRIPLEX OF LOWER EXTREMITIES, BILATERAL CLINICAL INFORMATION: Bilateral lower extremity edema and swelling. COMPARISON: None TECHNIQUE: Color-flow triplex imaging with spectral analysis and compression Doppler were performed on the lower extremities. FINDINGS: Evaluation of the right lower extremity was significantly limited secondary to overlying bandaging. Evaluation of the right femoral, popliteal and calf veins was performed without evidence of deep venous thrombosis. On the left, normal waveforms, compressibility and augmentation is present within the left common femoral, femoral, popliteal and calf veins. There is no Corbett's cyst. IMPRESSION: No evidence for deep venous thrombosis within either lower extremity.
[2016-10-05 16:00] VITALS: BP 120/64
--- NOTE | 2016-10-05 18:20 | ECHOCARDIOGRAM REPORT ---
MIKKI BRICE Age: 20 : 1995 Gender: M Exam Date: 10/05/2016 09:10 Exam Location: [facility] Ht (in): Wt (lb): BSA: BP: 161 / 64 Ordering Physician: VADIM BLAKE MD Referring Physician: VADIM BLAKE MD Technologist: Omkar Hampton RDCS Room Number: 108 Indications: RESPIRATORY FAILURE Rhythm: Sinus Technical Quality: Technically difficult study FINDINGS Left Ventricle Normal size left ventricle. Normal left ventricular wall thickness. Normal left ventricular ejection fraction visually estimated at >55 %. No obvious regional wall motion abnormalities. Right Ventricle Normal right ventricular size and function. Right Atrium Normal right atrial size. Left Atrium Normal left atrial size. Mitral Valve Structurally normal mitral valve. No mitral stenosis. No mitral regurgitation. Aortic Valve Structurally normal trileaflet aortic valve. No aortic stenosis. No aortic regurgitation. Tricuspid Valve Tricuspid valve not well visualized, grossly normal. Trace tricuspid regurgitation. No evidence of pulmonary hypertension. Pulmonic Valve Pulmonic valve not well visualized, grossly normal. Pericardium No pericardial effusion. Great Vessels Aortic root and proximal ascending aorta not well visualized, grossly normal. CONCLUSIONS Normal size left ventricle. Normal left ventricular ejection fraction visually estimated at >55 Trace tricuspid regurgitation. No evidence of pulmonary hypertension. Shadi Hernandez M.D. (Electronically Signed) Final Date: 05 Oct 2016 18:19 MEASUREMENTS (Male / Female) Normal Values 2D ECHO LV Diastolic Diameter PLAX 4.6 cm 4.2 - 5.9 / 3.9 - 5.3 cm LV Systolic Diameter PLAX 2.8 cm 2.1 - 4.0 cm LV Fractional Shortening PLAX 39.1 % 25 - 46 % LV Ejection Fraction 2D Teich 69.6 % IVS Diastolic Thickness 0.9 cm LVPW Diastolic Thickness 1.0 cm LV Relative Wall Thickness 0.4 LVOT Diameter 2.0 cm DOPPLER AV Peak Velocity 148.0 cm/s AV Peak Gradient 8.8 mmHg AV Mean Velocity 89.8 cm/s AV Mean Gradient 4.0 mmHg AV Velocity Time Integral 23.7 cm LVOT Peak Velocity 114.0 cm/s LVOT Peak Gradient 5.2 mmHg LVOT Mean Velocity 73.5 cm/s LVOT Mean Gradient 3.0 mmHg LVOT Velocity Time Integral 21.2 cm LVOT Stroke Volume 66.6 cm AV Area Cont Eq vti 2.8 cm AV Area Cont Eq pk 2.4 cm Mitral E Point Velocity 101.0 cm/s Mitral A Point Velocity 65.2 cm/s Mitral E to A Ratio 1.5 MV Deceleration Time 162.0 ms TR Peak Velocity 269.0 cm/s TR Peak Gradient 28.9 mmHg PV Peak Velocity 122.0 cm/s PV Peak Gradient 6.0 mmHg
[2016-10-05 18:58] LABS: ABSOLUTE BASOPHIL COUNT 0 /CUMM (0.0-0.2); ABSOLUTE EOSINOPHIL COUNT 0 /CUMM (0.0-0.7); ABSOLUTE GRANULOCYTE CT 13.3 /CUMM (1.4-6.5); ABSOLUTE LYMPH COUNT 0.4 /CUMM (1.2-3.4); ABSOLUTE MONOCYTE COUNT 0.6 /CUMM (0.10-0.60); BASOPHIL % 0 % (0.0-2.0); EOSINOPHIL % 0.1 % (0-5); HEMATOCRIT 33.8 % (42-52); MEAN CORPUSCULAR HGB 29.8 PG (27.0-31.0); MEAN CORPUSCULAR HGB CONC 33.2 G/DL (33.0-37.0); MEAN CORPUSCULAR VOLUME 89.7 FL (80.0-94.0); MEAN PLATELET VOLUME 9.2 FL (7.4-10.4); PLATELET COUNT 215 /CUMM (130-400); RBC DISTRIBUTION WIDTH 12.7 % (11.5-14.5); RED BLOOD CELL CT 3.77 /CUMM (4.70-6.10); WHITE BLOOD CELL COUNT 14.3 /CUMM (4.8-10.8)
[2016-10-06] VITALS: BP 100/64
[2016-10-06 06:15] LABS: ABSOLUTE BASOPHIL COUNT 0 /CUMM (0.0-0.2); ABSOLUTE EOSINOPHIL COUNT 0 /CUMM (0.0-0.7); ABSOLUTE GRANULOCYTE CT 12.3 /CUMM (1.4-6.5); ABSOLUTE MONOCYTE COUNT 1.2 /CUMM (0.10-0.60); BASOPHIL % 0 % (0.0-2.0); EOSINOPHIL % 0 % (0-5); GRANULOCYTE % 84.4 % (42.2-75.2); HEMATOCRIT 31.1 % (42-52); MEAN CORPUSCULAR HGB 30.4 PG (27.0-31.0); MEAN CORPUSCULAR VOLUME 89.3 FL (80.0-94.0); MEAN PLATELET VOLUME 9.3 FL (7.4-10.4); PLATELET COUNT 189 /CUMM (130-400); RBC DISTRIBUTION WIDTH 13.2 % (11.5-14.5); RED BLOOD CELL CT 3.48 /CUMM (4.70-6.10); WHITE BLOOD CELL COUNT 14.5 /CUMM (4.8-10.8)
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
[2016-10-06 08:00] VITALS: BP 98/68
--- NOTE | 2016-10-06 09:39 | RADIOLOGY REPORT ---
EXAMINATION: XR PORTABLE CHEST CLINICAL INFORMATION: ET tube placement. Hypoxic respiratory failure. COMPARISON: Chest x-ray 10/05/2016. TECHNIQUE: Portable frontal view of the chest was obtained. FINDINGS: The endotracheal tube is noted with the tip 4.5 cm above the level of the mercy. There is an enteric tube extending into the stomach. There are multiple monitor leads overlying the chest. The lungs are moderately well-expanded. The study redemonstrates hazy bibasilar opacities. This appears similar compared to the prior study. There are no large pleural effusions or pneumothoraces. There are no acute osseous findings. The cardiac silhouette is normal in size. The lung mora are moderately well-expanded. IMPRESSION: 1. The endotracheal tube tip is approximately 4.5 cm above the mercy. 2. The study redemonstrates persistent hazy opacities at the lower zones bilaterally, similar compared to the prior study.
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
--- NOTE | 2016-10-06 13:02 | PN- Cardiology ---
Subjective Subjective: The patient has remained clinically stable from a cardiac standpoint. Blood pressure stable. No evidence of any arrhythmias. Echocardiogram essentially normal. Objective Vital Signs and I&Os Vital Signs Date Time Temp Pulse Resp B/P B/P Pulse O2 O2 Flow FiO2 Mean Ox Delivery Rate 10/06 1100 50 10/06 0852 35 10/06 0800 93 Ventilator 35% 10/06 0800 98.1 72 17 98/68 98 Ventilator 35% 10/06 0538 35 10/06 0412 35 10/06 0400 99 Ventilator 35% 10/06 0125 35 10/06 0000 97.9 72 18 100/64 95 Ventilator 35% 10/06 0000 99 Ventilator 35% 10/05 2249 35 10/05 2000 98 Ventilator 40% 10/05 1900 40 10/05 1635 50 10/05 1600 96 Ventilator 70% 10/05 1600 98.4 93 18 120/64 96 Ventilator 70% Intake & Output 10/06 1600 10/06 0800 10/06 0000 10/05 1600 10/05 0800 10/05 0000 Intake Total 1671 2005 2325 3070 711 Output Total 595 437 3610 1000 500 Balance 1171 1904 754 0898 211 Intake, IV 1671 1855 2325 3070 711 Intake, Oral 0 Intake, Other 150 Number 0 Bowel Movements Output, Urine 039 361 5431 1000 500 Patient 254 lb 253 lb Weight Weight Bed scale Measurement Method Current Medications: Current Medications Sig/Kendra Start time Last Medication Dose Route Stop Time Status Admin Acetaminophen 325 MG Q6P PRN 10/04 1830 AC PO Ampicillin Sodium/ 3,000 MG Q6 10/04 1911 AC 10/06 Sulbactam Sodium IV 1225 Sodium Chloride 100 ML Chlordiazepoxide HCl 25 MG Q8 10/06 0934 AC 10/06 PO 1003 Dextrose/Sodium 1,000 ML Q13H 10/05 1000 DC 10/06 Chloride IV 0444 Fentanyl Citrate 1,000 MCG Q5H 10/05 1245 AC 10/06 Dextrose/Water 250 ML IV 0608 Furosemide 20 MG ONCE ONE 10/06 0945 CAN IV 10/06 0946 Furosemide 20 MG ONCE ONE 10/06 0915 DC 10/06 IV 10/06 0916 0944 Heparin Sodium 5,000 UNIT Q8 10/04 2200 AC 10/06 (Porcine) SC 0604 Hydromorphone HCl 0.5 MG Q4P PRN 10/04 1830 DC IV Levetiracetam 500 MG Q12 PRN 10/04 1915 DC N/A 1 UNIT IV Lorazepam 2 MG ONCE ONE 10/06 0915 DC 10/06 IV 10/06 0916 0933 Lorazepam 1 MG Q4P PRN 10/06 0911 AC IV Lorazepam 1 MG Q4P PRN 10/05 1015 DC 10/06 IV 0424 Methylprednisolone 40 MG DAILY 10/05 1003 AC 10/06 IV 0755 Norepinephrine 4 MG Q24H 10/05 0700 DC 10/05 Sodium Chloride 250 ML IV 0851 Oxymetazoline HCl 2 SPRAY BID 10/05 1000 AC 10/06 MAX 10/07 2201 0809 Pantoprazole Sodium 40 MG DAILY 10/04 1905 AC 10/06 IV 0756 Phosphate 250 MG ONCE ONE 10/06 1000 DC 10/06 PO 10/06 1001 1004 Phosphate 250 MG ONCE ONE 10/06 1000 DC PO 10/06 1001 Phosphate 250 MG ONCE ONE 10/05 1915 CAN PO 10/05 191 Phosphate 250 MG PC AND AT BEDTIME 10/05 1800 AC 10/06 PO 1225 Results Last 48 Hrs of Labs/Mics: Laboratory Tests 10/06/16 0530: Anion Gap 5, Estimated GFR > 60, Glucose 140 H, Calcium 7.7 L, Phosphorus 2.1 L, Magnesium 2.4 H, Total Bilirubin 0.9, AST 279 H, ALT 495 H, Albumin 2.4 L , CBC w Diff MAN DIFF ORDERED, RBC 3.48 L, MCV 89.3, MCH 30.4, RDW 13.2, MPV 9.3, Gran % 84.4 H, Lymphocytes % 7.1 L, Monocytes % 8.5, Eosinophils % 0, Basophils % 0 L, Absolute Granulocytes 12.3 H, Segmented Neutrophils 84 H, Band Neutrophils 2, Absolute Lymphocytes 1.0 L, Lymphocytes 4 L, Monocytes 10 H, Absolute Monocytes 1.2 H, Absolute Eosinophils 0, Absolute Basophils 0, Nucleated RBCs 1 H, Platelet Estimate ADEQUATE, Polychromasia 1+, Basophilic Stippling SLIGHT, Ovalocytes FEW, PUBS MCHC 34.0, Fld Total RBCs Counted 100 10/06/16 0445: pH 7.43, pCO2 42, pO2 124 H, HCO3 27, ABG O2 Sat (Measured) 98.0, P-50 (Temp Corrected) Y, Carboxyhemoglobin 0.3 L, O2 Concentration % 35%, Temperature 98.4 , Respiration Rate 18, O2 Delivery Method ESPRIT, Vent Mode AC, Expiratory Pressure 10, Tidal Volume 600, Phlebotomy Draw Site RIGHT RADIAL 10/06/16 0000: Anion Gap 6, Estimated GFR > 60, Glucose 132 H, Calcium 7.7 L, Phosphorus 2.0 L, Magnesium 2.4 H, Total Bilirubin 1.0, AST 332 H, ALT 522 H, Creatine Kinase 6196 H, Troponin I 0.81 *H, Albumin 2.4 L 10/05/16 1800: Anion Gap 6, Estimated GFR > 60, Glucose 148 H, Lactic Acid 2.0, Calcium 7.3 L , Phosphorus 1.7 L, Magnesium 2.4 H, Total Bilirubin 1.2, AST 376 H, ALT 549 H, Albumin 2.5 L, CBC w Diff NO MAN DIFF REQ, RBC 3.77 L, MCV 89.7, MCH 29.8, RDW 12.7, MPV 9.2, Gran % 93.0 H, Lymphocytes % 2.9 L, Monocytes % 4.0, Eosinophils % 0.1, Basophils % 0 L, Absolute Granulocytes 13.3 H, Absolute Lymphocytes 0.4 L, Absolute Monocytes 0.6, Absolute Eosinophils 0, Absolute Basophils 0, PUBS MCHC 33.2 10/05/16 1204: Anion Gap 8, Estimated GFR 59 L, Glucose 127 H, Lactic Acid 2.4 H, Calcium 7.3 L, Phosphorus 2.3 L, Magnesium 2.4 H, Total Bilirubin 1.3, AST 509 H, ALT 562 H, Troponin I 1.61 *H, Albumin 2.6 L, CBC w Diff MAN DIFF ORDERED, RBC 3.97 L, MCV 88.6, MCH 29.8, RDW 12.5, MPV 8.9, Gran % 89.9 H, Lymphocytes % 4.4 L, Monocytes % 5.6, Eosinophils % 0, Basophils % 0.1, Absolute Granulocytes 15.4 H, Segmented Neutrophils 67, Band Neutrophils 19 H, Absolute Lymphocytes 0.8 L, Lymphocytes 7 L, Monocytes 7, Absolute Monocytes 1.0 H, Absolute Eosinophils 0, Absolute Basophils 0, Platelet Estimate ADEQUATE, Normocytic RBCs VERIFIED, Normochromic RBCs VERIFIED, Basophilic Stippling 1+, PUBS MCHC 33.6 10/05/16 1155: pH 7.36, pCO2 50 H, pO2 234 H, HCO3 27, ABG O2 Sat (Measured) 99.0, P-50 (Temp Corrected) YES, Carboxyhemoglobin 0.3 L, O2 Concentration % 70%, Temperature 99.9, Respiration Rate 18, O2 Delivery Method VENT, Vent Mode AC, Expiratory Pressure 10, Tidal Volume 600, Phlebotomy Draw Site LEFT BRACHIAL 10/05/16 0800: Troponin I 1.73 *H 10/05/16 0430: Anion Gap 13, Estimated GFR 40 L, Glucose 132 H, Calcium 7.4 L, Phosphorus 3.1, Magnesium 1.5 L, Total Bilirubin 1.8 H, AST 603 H, ALT 583 H, Albumin 2.8 L, CBC w Diff MAN DIFF ORDERED, RBC 4.46 L, MCV 89.1, MCH 30.0, RDW 13.0, MPV 9.3, Gran % 91.9 H, Lymphocytes % 4.5 L, Monocytes % 3.6, Eosinophils % 0, Basophils % 0 L, Absolute Granulocytes 18.7 H, Segmented Neutrophils 65, Band Neutrophils 25 H, Absolute Lymphocytes 0.9 L, Lymphocytes 1 L, Monocytes 5, Absolute Monocytes 0.7 H, Absolute Eosinophils 0, Absolute Basophils 0, Metamyelocytes 4 H, Platelet Estimate ADEQUATE, Basophilic Stippling 1+, PUBS MCHC 33.7 10/05/16 0330: pH 7.33 L, pCO2 29 L, pO2 94, HCO3 15 L, ABG O2 Sat (Measured) 97.0, P-50 ( Temp Corrected) N, Carboxyhemoglobin 0.3 L, O2 Concentration % .70, Respiration Rate 24, O2 Delivery Method VENT, Vent Mode A/C, Expiratory Pressure 10, Tidal Volume 600, Phlebotomy Draw Site LEFT RADIAL 10/05/16 0215: Lactic Acid 2.6 H, Creatine Kinase 6078 H, Troponin I 1.46 *H, Amylase 946 H, Lipase 30, PT 15.1 H, INR 1.44 H 10/04/16 2250: Lactic Acid 3.0 H 10/04/16 2250: Anion Gap 12, Estimated GFR 27 L, Glucose 91, Calcium 7.5 L, Phosphorus 4.5, Magnesium 1.6, Total Bilirubin 1.5 H, AST 542 H, ALT 507 H, Albumin 2.9 L 10/04/16 2100: Urine Color YEL, Urine Clarity CLEAR, Urine pH 6.0, Ur Specific [place] 1.025, Urine Protein 30 H, Urine Ketones NEG, Urine Nitrite NEG, Urine Bilirubin NEG, Urine Urobilinogen 0.2, Ur Leukocyte Esterase NEG, Ur Microscopic SEDIMENT EXAMINED, Urine RBC 5-10 H, Urine WBC 1-3 H, Urine Bacteria MANY H, Hyaline Casts MANY H, Granular Casts 3-5 H, Urine Hemoglobin LARGE H, Urine Glucose NEG 10/04/162014: pH 7.18 *L, pCO2 41, pO2 108 H, HCO3 15 L, ABG O2 Sat (Measured) 96.0, P-50 ( Temp Corrected) N, Carboxyhemoglobin 0.7 L, O2 Concentration % 100%, Temperature 97.7, Respiration Rate 24, O2 Delivery Method ESPRIT, Vent Mode AC, Expiratory Pressure 10, Tidal Volume 600, Phlebotomy Draw Site RIGHT RADIAL 10/04/16 1955: Troponin I 1.03 *H 10/04/161904: Bicarbonate Actual 20 L, Mixed VBG pH 7.11 L, Mixed VBG pCO2 65 H, Mixed VBG O2 Saturation 24 L, Carboxyhemoglobin 0.8 L, O2 Concentration % 100%, Respiration Rate 24, O2 Delivery Method ESPRIT, Vent Mode AC, Expiratory Pressure 10, Tidal Volume 600, Phlebotomy Draw Site L FEM 10/04/16 1900: Lactic Acid 2.5 H 10/04/16 1615: pH 7.15 *L, pCO2 50 H, pO2 80, HCO3 17 L, ABG O2 Sat (Measured) 92.0 L, Carboxyhemoglobin 1.7, O2 Concentration % 100%, Respiration Rate 20, O2 Delivery Method ESPRIT VENT, Vent Mode AC, Expiratory Pressure 10, Tidal Volume 600, Phlebotomy Draw Site RIGHT RADIAL 10/04/16 1455: Urine Opiates Screen > 4000.00 H, Methadone Screen < 40, Barbiturate Screen 64, Ur Phencyclidine Scrn < 6.00, Amphetamines Screen 315, U Benzodiazepines Scrn < 85, Urine Cocaine Screen > 1000.0 H, Urine Cannabis Screen < 5.00 10/04/16 1455: Anion Gap 15, Estimated GFR 23 L, BUN/Creatinine Ratio 10.6, Glucose 151 H, Lactic Acid 3.4 H, Calcium 8.3 L, Total Bilirubin 1.3, AST 233 H, ALT 276 H, Alkaline Phosphatase 73, Creatine Kinase 371 H, Total Protein 5.9 L, Albumin 3.6, Globulin 2.3, Albumin/Globulin Ratio 1.6, Amylase 2069 H, Lipase 235, CBC w Diff NO MAN DIFF REQ, RBC 4.98, MCV 91.0, MCH 29.6, RDW 13.2, MPV 8.8, Gran % 89.5 H, Lymphocytes % 9.4 L, Monocytes % 0.9 L, Eosinophils % 0.1, Basophils % 0.1, Absolute Granulocytes 10.0 H, Absolute Lymphocytes 1.0 L, Absolute Monocytes 0.1 L, Absolute Eosinophils 0, Absolute Basophils 0, PUBS MCHC 32.6 L, Hepatitis A IgM Ab NONREACTIVE, Hep Bs Antigen NONREACTIVE, Hep B Core IgM Ab Conf NONREACTIVE, Hepatitis C Antibody NONREACTIVE, Salicylates < 1.0, Acetaminophen < 10.0 L, Serum Alcohol < 10.0 Microbiology 10/06 0000 URINE ROUT: Legionella Antigen - COMP 10/06 0000 URINE ROUT: Streptococcus pneumoniae Antigen (M - COMP 10/04 2100 UPPER RESP: Surveillance Culture - COMP 10/04 2100 GI: Surveillance Culture - COMP 10/04 1455 URINE ROUT: Urine Culture - COMP Assessment/Plan Assessment/Plan Assessment: 1. Status post cardiac arrest; likely related to polysubstance abuse 2. Mildly elevated troponin 3. Respiratory failure; intubated 4. Hypotension Recommendations: -Clinically, the patient is improving. -Weaning trials ongoing with possible extubation today -From a cardiac standpoint, continue to monitor on telemetry for now. -Review of echo cardiac gram shows normal left ventricular function with no evidence of any significant myocardial damage. -Further plans after extubation.
--- NOTE | 2016-10-06 14:28 | PN- Pulmonary ---
Subjective HPI/Critical Care Issues: Patient seen and examined at bedside this AM. He is more awake and alert. He is able to follow commands, including squeezing of both hands, wiggling his bilateral toes, and looking towards his parents when asked to do so. His O2 requirements have decreased from FiO2 of 75% to 35% on AC ventilation. He remained afebrile overnight with Tmax 99.1. Parents were at bedside and updated on his clinical status. Patient will start PSV trials today. 24 Hour Events: quality assurance monitor final: No events. Vital signs last 24 hours: T 97.9-99.9, HR 68-104. RR 11-20, BP 94-114/49-60, O2 saturation 95-100% on AC ventilation RR 18 TV 600 FiO2 70% titrated down to 35%, and 10 of PEEP decreased to 8 of PEEP. Total intake last 24 hours: 6001 cc Total output last 24 hours: 3300 cc Objective Current Medications: Current Medications Sig/Kendra Start time Last Medication Dose Route Stop Time Status Admin Acetaminophen 325 MG Q6P PRN 10/04 183 AC PO Ampicillin Sodium/ 3,000 MG Q6 10/04 1911 AC 10/06 Sulbactam Sodium IV 1225 Sodium Chloride 100 ML Chlordiazepoxide HCl 25 MG Q8 10/06 0934 AC 10/06 PO 1003 Dextrose/Sodium 1,000 ML Q13H 10/05 1000 DC 10/06 Chloride IV 0444 Fentanyl Citrate 1,000 MCG Q5H 10/05 1245 10/06 Dextrose/Water 250 ML IV 0608 Furosemide 20 MG ONCE ONE 10/06 0945 CAN IV 10/06 0946 Furosemide 20 MG ONCE ONE 10/06 0815 DC 10/06 IV 10/06 0916 0944 Heparin Sodium 5,000 UNIT Q8 10/04 2200 AC 10/06 (Porcine) SC 0604 Hydromorphone HCl 0.5 MG Q4P PRN 10/04 1830 DC IV Levetiracetam 500 MG Q12 PRN 10/04 1915 DC N/A 1 UNIT IV Lorazepam 2 MG ONCE ONE 10/06 0915 DC 10/06 IV 10/06 0916 0933 Lorazepam 1 MG Q4P PRN 10/06 0911 AC IV Lorazepam 1 MG Q4P PRN 10/05 1015 DC 10/06 IV 0424 Methylprednisolone 40 MG DAILY 10/05 1003 AC 10/06 IV 0755 Norepinephrine 4 MG Q24H 10/05 0700 DC 10/05 Sodium Chloride 250 ML IV 0851 Oxymetazoline HCl 2 SPRAY BID 10/05 1000 AC 10/06 MAX 10/07 2201 0809 Pantoprazole Sodium 40 MG DAILY 10/04 1905 AC 10/06 IV 0756 Phosphate 250 MG ONCE ONE 10/06 1000 DC 10/06 PO 10/06 1001 1004 Phosphate 250 MG ONCE ONE 10/06 1000 DC PO 10/06 1001 Phosphate 250 MG ONCE ONE 10/05 1915 CAN PO 10/05 1916 Phosphate 250 MG PC AND AT BEDTIME 10/05 1800 AC 10/06 PO 1225 Vital Signs & I&O Last 24 Hrs of Vitals and I&O: Vital Signs Date Time Temp Pulse Resp B/P B/P Pulse O2 O2 Flow FiO2 Mean Ox Delivery Rate 10/06 1200 97 Ventilator 45% 10/06 1100 50 10/06 0852 35 10/06 0800 93 Ventilator 35% 10/06 0800 98.1 72 17 98/68 98 Ventilator 35% 10/06 0538 35 10/06 0412 35 10/06 0400 99 Ventilator 35% 10/06 0125 35 10/06 0000 97.9 72 18 100/64 95 Ventilator 35% 10/06 0000 99 Ventilator 35% 10/05 2249 35 10/05 2000 98 Ventilator 40% 10/05 1900 40 10/05 1635 50 10/05 1600 96 Ventilator 70% 10/05 1600 98.4 93 18 120/64 96 Ventilator 70% Intake & Output 10/06 1600 10/06 0800 10/06 0000 Intake Total 1671 2005 Output Total 500 950 Balance 1171 1055 Intake, IV 1671 1855 Intake, Other 150 Output, Urine 500 950 Impression/Plan Impression/Plan Impression/Plan: Physical exam Pupils were small were reacting to light Neck was supple there was no JVD Heart S1-S2 was heard no significant murmur Chest showed bilateral rales with no significant wheezing with some rhonchi and transmitted sounds. Prolonged expiration Abdominal exam, was soft bowel sounds mild There was no significant edema. Laboratory Tests 10/06 10/06 0530 0445 Blood Gas pH (7.35 - 7.45 PH) 7.43 pCO2 (35 - 45 TORR) 42 pO2 (80 - 100 TORR) 124 H HCO3 (21 - 28 MEQ/L) 27 ABG O2 Sat (Measured) (>96.0 %) 98.0 P-50 (Temp Corrected) Y Carboxyhemoglobin (1.5 - 5.0 %) 0.3 L O2 Concentration % 35% Temperature (97.0 - 100.0 FARH) 98.4 Respiration Rate (BPM) 18 O2 Delivery Method ESPRIT Vent Mode AC Expiratory Pressure (CMH2O/P) 10 Tidal Volume (CC) 600 Chemistry Sodium (137 - 145 mmol/L) 139 Potassium (3.5 - 5.1 mmol/L) 4.0 Chloride (98 - 107 mmol/L) 103 Carbon Dioxide (22 - 30 mmol/L) 31 H Anion Gap (5 - 16) 5 BUN (9 - 20 mg/dL) 17 Creatinine (0.7 - 1.2 mg/dL) 1.0 Estimated GFR (>60 ml/min) > 60 Glucose (65 - 99 mg/dL) 140 H Calcium (8.4 - 10.2 mg/dL) 7.7 L Phosphorus (2.5 - 4.5 mg/dL) 2.1 L Magnesium (1.6 - 2.3 mg/dL) 2.4 H Total Bilirubin (0.2 - 1.3 mg/dL) 0.9 AST (17 - 59 U/L) 279 H ALT (21 - 72 U/L) 495 H Albumin (3.5 - 5.0 g/dL) 2.4 L Hematology CBC w Diff MAN DIFF ORDERED WBC (4.8 - 10.8 /CUMM) 14.5 H RBC (4.70 - 6.10 /CUMM) 3.48 L Hgb (14.0 - 18.0 G/DL) 10.6 L Hct (42 - 52 %) 31.1 L MCV (80.0 - 94.0 FL) 89.3 MCH (27.0 - 31.0 PG) 30.4 RDW (11.5 - 14.5 %) 13.2 Plt Count (130 - 400 /CUMM) 189 MPV (7.4 - 10.4 FL) 9.3 Gran % (42.2 - 75.2 %) 84.4 H Lymphocytes % (20.5 - 51.1 %) 7.1 L Monocytes % (1.7 - 9.3 %) 8.5 Eosinophils % (0 - 5 %) 0 Basophils % (0.0 - 2.0 %) 0 L Absolute Granulocytes (1.4 - 6.5 /CUMM) 12.3 H Segmented Neutrophils (42.2 - 75.2 %) 84 H Band Neutrophils (0.0 - 5.0 %) 2 Absolute Lymphocytes (1.2 - 3.4 /CUMM) 1.0 L Lymphocytes (20.5 - 51.1 %) 4 L Monocytes (1.7 - 9.3 %) 10 H Absolute Monocytes (0.10 - 0.60 /CUMM) 1.2 H Absolute Eosinophils (0.0 - 0.7 /CUMM) 0 Absolute Basophils (0.0 - 0.2 /CUMM) 0 Nucleated RBCs (0.0 - 0.0 /100WBC) 1 H Platelet Estimate (ADEQUATE) ADEQUATE Polychromasia 1+ Basophilic Stippling SLIGHT Ovalocytes FEW PUBS MCHC (33.0 - 37.0 G/DL) 34.0 Miscellaneous Phlebotomy Draw Site RIGHT RADIAL Other Body Source Fld Total RBCs Counted (%) 100 10/06 10/05 0000 1800 Chemistry Sodium (137 - 145 mmol/L) 141 138 Potassium (3.5 - 5.1 mmol/L) 4.5 4.1 Chloride (98 - 107 mmol/L) 105 104 Carbon Dioxide (22 - 30 mmol/L) 30 28 Anion Gap (5 - 16) 6 6 BUN (9 - 20 mg/dL) 17 18 Creatinine (0.7 - 1.2 mg/dL) 1.0 1.1 Estimated GFR (>60 ml/min) > 60 > 60 Glucose (65 - 99 mg/dL) 132 H 148 H Lactic Acid (0.7 - 2.1 mmol/L) 2.0 Calcium (8.4 - 10.2 mg/dL) 7.7 L 7.3 L Phosphorus (2.5 - 4.5 mg/dL) 2.0 L 1.7 L Magnesium (1.6 - 2.3 mg/dL) 2.4 H 2.4 H Total Bilirubin (0.2 - 1.3 mg/dL) 1.0 1.2 AST (17 - 59 U/L) 332 H 376 H ALT (21 - 72 U/L) 522 H 549 H Creatine Kinase (55 - 170 U/L) 6196 H Troponin I (<0.11 ng/ml) 0.81 *H Albumin (3.5 - 5.0 g/dL) 2.4 L 2.5 L Hematology CBC w Diff NO MAN DIFF REQ WBC (4.8 - 10.8 /CUMM) 14.3 H RBC (4.70 - 6.10 /CUMM) 3.77 L Hgb (14.0 - 18.0 G/DL) 11.3 L Hct (42 - 52 %) 33.8 L MCV (80.0 - 94.0 FL) 89.7 MCH (27.0 - 31.0 PG) 29.8 RDW (11.5 - 14.5 %) 12.7 Plt Count (130 - 400 /CUMM) 215 MPV (7.4 - 10.4 FL) 9.2 Gran % (42.2 - 75.2 %) 93.0 H Lymphocytes % (20.5 - 51.1 %) 2.9 L Monocytes % (1.7 - 9.3 %) 4.0 Eosinophils % (0 - 5 %) 0.1 Basophils % (0.0 - 2.0 %) 0 L Absolute Granulocytes (1.4 - 6.5 /CUMM) 13.3 H Absolute Lymphocytes (1.2 - 3.4 /CUMM) 0.4 L Absolute Monocytes (0.10 - 0.60 /CUMM) 0.6 Absolute Eosinophils (0.0 - 0.7 /CUMM) 0 Absolute Basophils (0.0 - 0.2 /CUMM) 0 PUBS MCHC (33.0 - 37.0 G/DL) 33.2 10/05 10/05 1204 1155 Blood Gas pH (7.35 - 7.45 PH) 7.36 pCO2 (35 - 45 TORR) 50 H pO2 (80 - 100 TORR) 234 H HCO3 (21 - 28 MEQ/L) 27 ABG O2 Sat (Measured) (>96.0 %) 99.0 P-50 (Temp Corrected) YES Carboxyhemoglobin (1.5 - 5.0 %) 0.3 L O2 Concentration % 70% Temperature (97.0 - 100.0 FARH) 99.9 Respiration Rate (BPM) 18 O2 Delivery Method VENT Vent Mode AC Expiratory Pressure (CMH2O/P) 10 Tidal Volume (CC) 600 Chemistry Sodium (137 - 145 mmol/L) 141 Potassium (3.5 - 5.1 mmol/L) 4.0 Chloride (98 - 107 mmol/L) 105 Carbon Dioxide (22 - 30 mmol/L) 28 Anion Gap (5 - 16) 8 BUN (9 - 20 mg/dL) 23 H Creatinine (0.7 - 1.2 mg/dL) 1.5 H Estimated GFR (>60 ml/min) 59 L Glucose (65 - 99 mg/dL) 127 H Lactic Acid (0.7 - 2.1 mmol/L) 2.4 H Calcium (8.4 - 10.2 mg/dL) 7.3 L Phosphorus (2.5 - 4.5 mg/dL) 2.3 L Magnesium (1.6 - 2.3 mg/dL) 2.4 H Total Bilirubin (0.2 - 1.3 mg/dL) 1.3 AST (17 - 59 U/L) 509 H ALT (21 - 72 U/L) 562 H Troponin I (<0.11 ng/ml) 1.61 *H Albumin (3.5 - 5.0 g/dL) 2.6 L Hematology CBC w Diff MAN DIFF ORDERED WBC (4.8 - 10.8 /CUMM) 17.1 H RBC (4.70 - 6.10 /CUMM) 3.97 L Hgb (14.0 - 18.0 G/DL) 11.8 L Hct (42 - 52 %) 35.2 L MCV (80.0 - 94.0 FL) 88.6 MCH (27.0 - 31.0 PG) 29.8 RDW (11.5 - 14.5 %) 12.5 Plt Count (130 - 400 /CUMM) 243 MPV (7.4 - 10.4 FL) 8.9 Gran % (42.2 - 75.2 %) 89.9 H Lymphocytes % (20.5 - 51.1 %) 4.4 L Monocytes % (1.7 - 9.3 %) 5.6 Eosinophils % (0 - 5 %) 0 Basophils % (0.0 - 2.0 %) 0.1 Absolute Granulocytes (1.4 - 6.5 /CUMM) 15.4 H Segmented Neutrophils (42.2 - 75.2 %) 67 Band Neutrophils (0.0 - 5.0 %) 19 H Absolute Lymphocytes (1.2 - 3.4 /CUMM) 0.8 L Lymphocytes (20.5 - 51.1 %) 7 L Monocytes (1.7 - 9.3 %) 7 Absolute Monocytes (0.10 - 0.60 /CUMM) 1.0 H Absolute Eosinophils (0.0 - 0.7 /CUMM) 0 Absolute Basophils (0.0 - 0.2 /CUMM) 0 Platelet Estimate (ADEQUATE) ADEQUATE Normocytic RBCs VERIFIED Normochromic RBCs VERIFIED Basophilic Stippling 1+ PUBS MCHC (33.0 - 37.0 G/DL) 33.6 Miscellaneous Phlebotomy Draw Site LEFT BRACHIAL 10/05 10/05 0800 0430 Chemistry Sodium (137 - 145 mmol/L) 139 Potassium (3.5 - 5.1 mmol/L) 4.3 Chloride (98 - 107 mmol/L) 106 Carbon Dioxide (22 - 30 mmol/L) 20 L Anion Gap (5 - 16) 13 BUN (9 - 20 mg/dL) 31 H Creatinine (0.7 - 1.2 mg/dL) 2.1 H Estimated GFR (>60 ml/min) 40 L Glucose (65 - 99 mg/dL) 132 H Calcium (8.4 - 10.2 mg/dL) 7.4 L Phosphorus (2.5 - 4.5 mg/dL) 3.1 Magnesium (1.6 - 2.3 mg/dL) 1.5 L Total Bilirubin (0.2 - 1.3 mg/dL) 1.8 H AST (17 - 59 U/L) 603 H ALT (21 - 72 U/L) 583 H Troponin I (<0.11 ng/ml) 1.73 *H Albumin (3.5 - 5.0 g/dL) 2.8 L Hematology CBC w Diff MAN DIFF ORDERED WBC (4.8 - 10.8 /CUMM) 20.3 H RBC (4.70 - 6.10 /CUMM) 4.46 L Hgb (14.0 - 18.0 G/DL) 13.4 L Hct (42 - 52 %) 39.7 L MCV (80.0 - 94.0 FL) 89.1 MCH (27.0 - 31.0 PG) 30.0 RDW (11.5 - 14.5 %) 13.0 Plt Count (130 - 400 /CUMM) 277 MPV (7.4 - 10.4 FL) 9.3 Gran % (42.2 - 75.2 %) 91.9 H Lymphocytes % (20.5 - 51.1 %) 4.5 L Monocytes % (1.7 - 9.3 %) 3.6 Eosinophils % (0 - 5 %) 0 Basophils % (0.0 - 2.0 %) 0 L Absolute Granulocytes (1.4 - 6.5 /CUMM) 18.7 H Segmented Neutrophils (42.2 - 75.2 %) 65 Band Neutrophils (0.0 - 5.0 %) 25 H Absolute Lymphocytes (1.2 - 3.4 /CUMM) 0.9 L Lymphocytes (20.5 - 51.1 %) 1 L Monocytes (1.7 - 9.3 %) 5 Absolute Monocytes (0.10 - 0.60 /CUMM) 0.7 H Absolute Eosinophils (0.0 - 0.7 /CUMM) 0 Absolute Basophils (0.0 - 0.2 /CUMM) 0 Metamyelocytes (0.0 - 1.0 %) 4 H Platelet Estimate (ADEQUATE) ADEQUATE Basophilic Stippling 1+ PUBS MCHC (33.0 - 37.0 G/DL) 33.7 10/05 10/05 10/04 10/04 0330 0215 2250 2250 Blood Gas pH (7.35 - 7.45 PH) 7.33 L pCO2 (35 - 45 TORR) 29 L pO2 (80 - 100 TORR) 94 HCO3 (21 - 28 MEQ/L) 15 L ABG O2 Sat (Measured) (>96.0 %) 97.0 P-50 (Temp Corrected) N Carboxyhemoglobin (1.5 - 5.0 %) 0.3 L O2 Concentration % .70 Respiration Rate (BPM) 24 O2 Delivery Method VENT Vent Mode A/C Expiratory Pressure (CMH2O/P) 10 Tidal Volume (CC) 600 Chemistry Sodium (137 - 145 mmol/L) 136 L Potassium (3.5 - 5.1 mmol/L) 5.1 5.3 H Chloride (98 - 107 mmol/L) 107 Carbon Dioxide (22 - 30 mmol/L) 17 L Anion Gap (5 - 16) 12 BUN (9 - 20 mg/dL) 38 H Creatinine (0.7 - 1.2 mg/dL) 3.0 H Estimated GFR (>60 ml/min) 27 L Glucose (65 - 99 mg/dL) 91 Lactic Acid (0.7 - 2.1 mmol/L) 2.6 H 3.0 H Calcium (8.4 - 10.2 mg/dL) 7.5 L Phosphorus (2.5 - 4.5 mg/dL) 4.5 Magnesium (1.6 - 2.3 mg/dL) 1.6 Total Bilirubin (0.2 - 1.3 mg/dL) 1.5 H AST (17 - 59 U/L) 542 H ALT (21 - 72 U/L) 507 H Creatine Kinase (55 - 170 U/L) 6078 H Troponin I (<0.11 ng/ml) 1.46 *H Albumin (3.5 - 5.0 g/dL) 2.9 L Amylase (30 - 110 U/L) 946 H Lipase (23 - 300 U/L) 30 Coagulation PT (9.4 - 12.5 SEC) 15.1 H INR (0.90 - 1.17) 1.44 H Miscellaneous Phlebotomy Draw Site LEFT RADIAL 10/04 Blood Gas pH (7.35 - 7.45 PH) 7.18 *L pCO2 (35 - 45 TORR) 41 pO2 (80 - 100 TORR) 108 H HCO3 (21 - 28 MEQ/L) 15 L ABG O2 Sat (Measured) (>96.0 %) 96.0 P-50 (Temp Corrected) N Carboxyhemoglobin (1.5 - 5.0 %) 0.7 L O2 Concentration % 100% Temperature (97.0 - 100.0 FARH) 97.7 Respiration Rate (BPM) 24 O2 Delivery Method ESPRIT Vent Mode AC Expiratory Pressure (CMH2O/P) 10 Tidal Volume (CC) 600 Miscellaneous Phlebotomy Draw Site RIGHT RADIAL Urines Urine Color (YEL,AMB,STR) YEL Urine Clarity (CLEAR) CLEAR Urine pH (5.0 - 8.0) 6.0 Ur Specific [place] (1.001 - 1.035) 1.025 Urine Protein (NEG,<30 MG/DL) 30 H Urine Ketones (NEG) NEG Urine Nitrite (NEG) NEG Urine Bilirubin (NEG) NEG Urine Urobilinogen (0.1 - 1.0 EU/dl) 0.2 Ur Leukocyte Esterase (NEG) NEG Ur Microscopic SEDIMENT EXAMINED Urine RBC (0 - 5 /HPF) 5-10 H Urine WBC (0 - 2 /HPF) 1-3 H Urine Bacteria (NEG/NONE) MANY H Hyaline Casts (0/LPF) MANY H Granular Casts (NONE /LPF) 3-5 H Urine Hemoglobin (NEG) LARGE H Urine Glucose (N MG/DL) NEG 10/04 190 1615 Blood Gas pH (7.35 - 7.45 PH) 7.15 *L pCO2 (35 - 45 TORR) 50 H pO2 (80 - 100 TORR) 80 HCO3 (21 - 28 MEQ/L) 17 L Bicarbonate Actual (22 - 26 MEQ/L) 20 L ABG O2 Sat (Measured) (>96.0 %) 92.0 L Mixed VBG pH (7.31 - 7.41 PH) 7.11 L Mixed VBG pCO2 (41 - 51 TORR) 65 H Mixed VBG O2 Saturation (35 - 45 TORR) 24 L Carboxyhemoglobin (1.5 - 5.0 %) 0.8 L 1.7 O2 Concentration % 100% 100% Respiration Rate (BPM) 24 20 O2 Delivery Method ESPRIT ESPRIT VENT Vent Mode AC AC Expiratory Pressure (CMH2O/P) 10 10 Tidal Volume (CC) 600 600 Chemistry Potassium (3.5 - 5.1 mmol/L) 5.1 Lactic Acid (0.7 - 2.1 mmol/L) 2.5 H Troponin I (<0.11 ng/ml) 1.03 *H Miscellaneous Phlebotomy Draw Site L FEM RIGHT RADIAL 10/04 10/04 1455 1455 Chemistry Sodium (137 - 145 mmol/L) 134 L Potassium (3.5 - 5.1 mmol/L) 6.3 *H Chloride (98 - 107 mmol/L) 99 Carbon Dioxide (22 - 30 mmol/L) 20 L Anion Gap (5 - 16) 15 BUN (9 - 20 mg/dL) 36 H Creatinine (0.7 - 1.2 mg/dL) 3.4 H Estimated GFR (>60 ml/min) 23 L BUN/Creatinine Ratio (7 - 25 %) 10.6 Glucose (65 - 99 mg/dL) 151 H Lactic Acid (0.7 - 2.1 mmol/L) 3.4 H Calcium (8.4 - 10.2 mg/dL) 8.3 L Total Bilirubin (0.2 - 1.3 mg/dL) 1.3 AST (17 - 59 U/L) 233 H ALT (21 - 72 U/L) 276 H Alkaline Phosphatase (< 127 U/L) 73 Creatine Kinase (55 - 170 U/L) 371 H Total Protein (6.3 - 8.2 g/dL) 5.9 L Albumin (3.5 - 5.0 g/dL) 3.6 Globulin (1.9 - 4.2 gm/dL) 2.3 Albumin/Globulin Ratio (1.1 - 2.2 %) 1.6 Amylase (30 - 110 U/L) 2069 H Lipase (23 - 300 U/L) 235 Hematology CBC w Diff NO MAN DIFF REQ WBC (4.8 - 10.8 /CUMM) 11.1 H RBC (4.70 - 6.10 /CUMM) 4.98 Hgb (14.0 - 18.0 G/DL) 14.8 Hct (42 - 52 %) 45.3 MCV (80.0 - 94.0 FL) 91.0 MCH (27.0 - 31.0 PG) 29.6 RDW (11.5 - 14.5 %) 13.2 Plt Count (130 - 400 /CUMM) 361 MPV (7.4 - 10.4 FL) 8.8 Gran % (42.2 - 75.2 %) 89.5 H Lymphocytes % (20.5 - 51.1 %) 9.4 L Monocytes % (1.7 - 9.3 %) 0.9 L Eosinophils % (0 - 5 %) 0.1 Basophils % (0.0 - 2.0 %) 0.1 Absolute Granulocytes (1.4 - 6.5 /CUMM) 10.0 H Absolute Lymphocytes (1.2 - 3.4 /CUMM) 1.0 L Absolute Monocytes (0.10 - 0.60 /CUMM) 0.1 L Absolute Eosinophils (0.0 - 0.7 /CUMM) 0 Absolute Basophils (0.0 - 0.2 /CUMM) 0 PUBS MCHC (33.0 - 37.0 G/DL) 32.6 L Serology Hepatitis A IgM Ab (NONREACTIVE) NONREACTIVE Hep Bs Antigen (NONREACTIVE) NONREACTIVE Hep B Core IgM Ab Conf (NONREACTIVE) NONREACTIVE Hepatitis C Antibody (NONREACTIVE) NONREACTIVE Toxicology Salicylates (0 - 20.0 mg/dL) < 1.0 Urine Opiates Screen (>2000 NG/ML) > 4000.00 H Methadone Screen (>300 NG/ML) < 40 Acetaminophen (10.0 - 30.0 ug/mL) < 10.0 L Barbiturate Screen (>200 NG/ML) 64 Ur Phencyclidine Scrn (>25 NG/ML) < 6.00 Amphetamines Screen (>1000 NG/ML) 315 U Benzodiazepines Scrn (>200 NG/ML) < 85 Urine Cocaine Screen (>300 NG/ML) > 1000.0 H Urine Cannabis Screen (>50 NG/ML) < 5.00 Serum Alcohol (<10 MG/DL) < 10.0 Microbiology Date/Time Procedure - Status Source Growth 10/06 1000 Respiratory Culture - RES LOWER RESP 10/06 1000 Gram Stain - RES LOWER RESP 10/06 0957 Respiratory Culture - COLB LOWER RESP 10/06 0957 Gram Stain - COLB LOWER RESP 10/06 0000 Legionella Antigen - COMP URINE ROUT 10/06 0000 Streptococcus pneumoniae Antigen (M - COMP URINE ROUT 10/05 1640 Respiratory Culture - RES LOWER RESP 10/05 1640 Gram Stain - RES LOWER RESP 10/05 1008 Respiratory Culture - CAN LOWER RESP Cancelled: DUPLICATE ORDER 10/05 1008 Gram Stain - CAN LOWER RESP Cancelled: DUPLICATE ORDER 10/04 2100 Surveillance Culture - COMP UPPER RESP 10/04 2100 Surveillance Culture - COMP GI 10/04 191 Respiratory Culture - CAN LOWER RESP Cancelled: SPECIMEN NOT RECEIVED IN LABORATORY 10/05 1911 Gram Stain - CAN LOWER RESP Cancelled: SPECIMEN NOT RECEIVED IN LABORATORY 10/04 1730 Blood Culture - RES BLOOD 10/04 1714 Blood Culture - RES BLOOD 10/04 1554 Blood Culture - CAN BLOOD Cancelled: Cancelled via OE: Duplicate Order 10/04 1455 Urine Culture - COMP URINE ROUT IMPRESSION This is an unfortunate 20-year-old gentleman with history suggestive of polysubstance abuse now here with acute respiratory failure with recent cardiopulmonary arrest with unknown downtime most likely related to polysubstance abuse with overdose. Patient seems to be intoxicated with significant amount of cocaine and as well as morphine. His issues include * Acute respiratory failure with significant hemodynamic instability with multiple organ failure related to drug overdose with low flow state * Status post cardiopulmonary arrest with return of spontaneous circulation after 3-4 minutes with one dose of epinephrine, now with vasomotor instability with profound shock * Multiple organ failure including renal failure, Pancreatitis, coronary ischemia now with bilateral severe lung injury with aspiration pna * BIlateral pna, sinusitis * Probable significant anoxic brain injury * Morphine, cocaine overdose * Rule out other causes of profound hypotension including venous thromboembolism but this seems less likely * Vomiting sig aspiration pneumonitis * Pulmonary edema appears to be noncardiogenic with ARDS like picture * Acute renal failure resolved RECOMMENDATION * Continue mechanical ventilator, reduce fio2 * hold ivf for now * CHeck cpk and if higher than this am start low dose bicarb drip * IV proton pump inhibitor * Subcutaneous heparin * Check cpk daily * Keep mag at 2, and phosphate at 3 * start librium and use prn ativan * COnt fentanyl drip to avoid withdrawal * Affrin nasal spray bid for three days * tube feeding * Unasyn high dose, check his labs this pm and adjust the dose * Daily solumedrol 40 daily * Sputum culture Prognosis is still poor discussed with family extensively. Patient is critically ill total critical care time 50 mins minutes
[2016-10-06 16:00] VITALS: BP 94/54
--- NOTE | 2016-10-06 16:00 | NUR ---
ASSUMED CARE OF PATIENT. PATIENT OPENS EYES TO NAME CALL AND FOLLOWS COMMANDS. ORIENTED TO SELF AND FAMILY. INTUBATED BUT WRITING QUESTIONS WITH PEN AND PAPER. MOVES ALL EXTREMITIES, HUI. MONITOR NSR, WITH REGULAR HEART SOUNDS. LUNGS DIMINISHED AT BASES WITH THICK SECRETIONS SUCTIONED FROM ET TUBE. SAT 97%. BELLS SOFT NON TENDER WITH GOOD BOWEL SOUNDS. OG TUBE IN PLACE AND TUBE FEEDING JEVITY 1.2ML STARTED, OG RESIDUAL 10CC PRIOR TO START OF TUBE FEED. MUÑIZ INTACT DRAINING CLEAR URINE. SKIN INTACT WITH R ARM EDEMA DUE TO DVT. WARM COMPRESS APPLIED ORDERED.
[2016-10-07] VITALS: BP 100/60
[2016-10-07 05:15] LABS: ABSOLUTE BASOPHIL COUNT 0 /CUMM (0.0-0.2); ABSOLUTE EOSINOPHIL COUNT 0 /CUMM (0.0-0.7); ABSOLUTE GRANULOCYTE CT 19.2 /CUMM (1.4-6.5); ABSOLUTE LYMPH COUNT 1.8 /CUMM (1.2-3.4); ABSOLUTE MONOCYTE COUNT 1.6 /CUMM (0.10-0.60); BASOPHIL % 0 % (0.0-2.0); EOSINOPHIL % 0 % (0-5); GRANULOCYTE % 84.8 % (42.2-75.2); HEMATOCRIT 33.9 % (42-52); MEAN CORPUSCULAR HGB 29.9 PG (27.0-31.0); MEAN CORPUSCULAR HGB CONC 33.1 G/DL (33.0-37.0); MEAN CORPUSCULAR VOLUME 90.2 FL (80.0-94.0); MEAN PLATELET VOLUME 9.3 FL (7.4-10.4); PLATELET COUNT 263 /CUMM (130-400); RBC DISTRIBUTION WIDTH 13.1 % (11.5-14.5); RED BLOOD CELL CT 3.76 /CUMM (4.70-6.10)
[2016-10-07 05:25] LABS: WHITE BLOOD CELL COUNT 22.6 /CUMM (4.8-10.8)
--- NOTE | 2016-10-07 06:00 | NUR ---
PATIENT WILL FOLLOW COMMANDS. GESTURE TO MAKE NEEDS KNOWN. FENTANYL DRIP AT 150 MCG/HR. MONITOR SINUS RHYTHM. TUBE FEED INCREASED TO 30 ML/HR. NO RESIDUAL OBTAINED.IVF OF NS TO INFUSE AT 150 ML/HR X1 LITER.
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
[2016-10-07 08:00] VITALS: BP 118/58
--- NOTE | 2016-10-07 09:00 | NUR ---
REC'D THE PT ORALLY INTUBATED AND MECHANICALLY VENTILATED PER MD ORDER. THE PT INITIALLY WAS ON A FENTANYL GTT AT 150MCG/HR OR 37.5ML/HR. PER DR KRISHNAN THE FENTANYL GTT ISTO BE TITRATED DOWN AND EVENTUALLY TURNED OFF SO THEPT CAN BE EXTUBATED. FENTANYL GTT WAS DECREASED TO 125MCG/HR OR 31.3ML/HR AT 0840. PT'S SAS IS 3. INFUSING VIA THE WHITE PORT OF THE R GROIN TLC. FOLLOWS COMMANDS AND HIDALGO. PT IS IN A NSR PER THE EMAIL MANAGER-NO ECTOPY NOTED. BRANDAN BS ARE CLEAR WITH AN O2 SAT OF 97%. SUCTIONED FOR MODERATE AMOUNTS OF PALE LEAL THIN SPUTUM. ABD IS SOFT WITH NORMOACTIVE BOWEL SOUNDS. MUÑIZ IN PLACE DRAINING LG AMOUNTS OF CLEAR PALE YELLOW URINE AFTER THE PT WAS MEDICATED WITH LASIX 20MG IV AT 0810.
--- NOTE | 2016-10-07 09:24 | PN- CRCU ---
Subjective HPI/Critical Care Issues: atient seen and examined at bedside this AM. He was laying comfortably in bed in no acute distress on AC ventilation and fentanyl for sedation. He is able to follow all commands. He denies chest pain or body pain. Parents are at bedside and updated on clinical condition and today's plans. Of note, patient was noted to have persistently elevated CK yesterday afternoon for which the team bolused with IVF. CK has since come down this AM to 3876. Renal function has remained stable over this time. Patient given IV lasix this AM in anticipation of PSV trials. 24 Hour Events: milk sampler: Tachy to 150s/160s briefly yesterday but no other overnight events. Vital signs last 24 hours: T 97.3-99.0, HR 58-103, BP 102-121/49-67, RR 14-20, O2 sat 95-99% on AC 18 TV 600 FiO2 35% and 8 PEEP. Total intake last 24 hours: 2988 cc Total output last 24 hours: 2215 cc Objective Current Medications: Current Medications Sig/Kendra Start time Last Medication Dose Route Stop Time Status Admin Acetaminophen 325 MG Q6P PRN 10/04 1830 AC PO Ampicillin Sodium/ 3,000 MG Q6 10/04 1911 AC 10/07 Sulbactam Sodium IV 0622 Sodium Chloride 100 ML Chlordiazepoxide HCl 25 MG Q8 10/06 0934 AC 10/07 PO 0623 Fentanyl Citrate 1,000 MCG Q6H 10/06 1800 AC 10/07 Dextrose/Water 250 ML IV 0140 Fentanyl Citrate 1,000 MCG Q5H 10/05 1245 DC 10/06 Dextrose/Water 250 ML IV 10/06 1800 0608 Furosemide 20 MG ONCE ONE 10/07 0800 DC 10/07 IV 10/07 0801 0828 Furosemide 20 MG ONCE ONE 10/06 0945 CAN IV 10/06 0946 Furosemide 20 MG ONCE ONE 10/06 0915 DC 10/06 IV 10/06 0916 0944 Heparin Sodium 5,000 UNIT Q8 10/04 2200 AC 10/07 (Porcine) SC 0629 Hydromorphone HCl 0.5 MG Q4P PRN 10/04 1830 DC IV Levetiracetam 500 MG Q12 PRN 10/04 1915 DC N/A 1 UNIT IV Lorazepam 2 MG ONCE ONE 10/06 0915 DC 10/06 IV 10/06 0916 0933 Lorazepam 1 MG Q4P PRN 10/06 0911 AC IV Methylprednisolone 40 MG DAILY 10/05 1003 AC 10/06 IV 0755 Oxymetazoline HCl 2 SPRAY BID 10/05 1000 AC 10/06 MAX 10/07 2201 0809 Pantoprazole Sodium 40 MG DAILY 10/04 1905 AC 10/06 IV 0756 Phosphate 250 MG DAILY 10/07 1000 UNVr PO Phosphate 250 MG ONCE ONE 10/06 1000 DC 10/06 PO 10/06 1001 1004 Phosphate 250 MG ONCE ONE 10/06 1000 DC PO 10/06 1001 Phosphate 250 MG PC AND AT BEDTIME 10/05 1800 DC 10/06 PO 2146 Potassium Chloride 20 MEQ Q1H 10/07 0800 UNVr 10/07 IV 10/07 0901 0828 Potassium Chloride 40 MEQ ONCE ONE 10/07 0730 DC 10/07 PO 10/07 0731 0828 Sodium Chloride 1,000 ML ONCE ONE 10/06 2345 DC 10/07 IV 10/07 0624 0020 Vital Signs & I&O Last 24 Hrs of Vitals and I&O: Vital Signs Date Time Temp Pulse Resp B/P B/P Pulse O2 O2 Flow FiO2 Mean Ox Delivery Rate 10/07 0534 35 10/07 0406 35 10/07 0400 95 Ventilator 35% 10/07 0134 35 10/07 0000 97.3 63 18 100/60 97 Ventilator 35% 10/07 0000 95 Ventilator 35% 10/06 2229 35 10/06 2000 96 Ventilator 45% 10/06 1941 35 10/06 1723 35 10/06 1600 97 Ventilator 45% 10/06 1600 99.3 96 14 94/54 95 Ventilator 45% 10/06 1350 35 10/06 1200 97 Ventilator 45% 10/06 1100 50 Intake & Output 10/07 1600 10/07 0800 10/07 0000 Intake Total 1397 820 Output Total 385 680 Balance 1012 140 Intake, IV 1093 400 Intake, Tube 184 120 Feeding Intake, Tube 120 300 Irrigant Output, Urine 385 680 Laboratory Tests 10/07 10/06 0430 2014 Chemistry Sodium (137 - 145 mmol/L) 143 Potassium (3.5 - 5.1 mmol/L) 3.7 Chloride (98 - 107 mmol/L) 105 Carbon Dioxide (22 - 30 mmol/L) 29 Anion Gap (5 - 16) 10 BUN (9 - 20 mg/dL) 22 H Creatinine (0.7 - 1.2 mg/dL) 1.0 Estimated GFR (>60 ml/min) > 60 Glucose (65 - 99 mg/dL) 109 H Calcium (8.4 - 10.2 mg/dL) 8.3 L Phosphorus (2.5 - 4.5 mg/dL) 3.1 Magnesium (1.6 - 2.3 mg/dL) 2.3 Total Bilirubin (0.2 - 1.3 mg/dL) 1.0 AST (17 - 59 U/L) 224 H ALT (21 - 72 U/L) 550 H Creatine Kinase (55 - 170 U/L) 3876 H 5006 H Troponin I (<0.11 ng/ml) 0.41 *H Albumin (3.5 - 5.0 g/dL) 2.9 L Amylase (30 - 110 U/L) 179 H Lipase (23 - 300 U/L) 687 H Hematology CBC w Diff MAN DIFF ORDERED WBC (4.8 - 10.8 /CUMM) 22.6 H RBC (4.70 - 6.10 /CUMM) 3.76 L Hgb (14.0 - 18.0 G/DL) 11.2 L Hct (42 - 52 %) 33.9 L MCV (80.0 - 94.0 FL) 90.2 MCH (27.0 - 31.0 PG) 29.9 RDW (11.5 - 14.5 %) 13.1 Plt Count (130 - 400 /CUMM) 263 MPV (7.4 - 10.4 FL) 9.3 Gran % (42.2 - 75.2 %) 84.8 H Lymphocytes % (20.5 - 51.1 %) 8.2 L Monocytes % (1.7 - 9.3 %) 7.0 Eosinophils % (0 - 5 %) 0 Basophils % (0.0 - 2.0 %) 0 L Absolute Granulocytes (1.4 - 6.5 /CUMM) 19.2 H Segmented Neutrophils (42.2 - 75.2 %) 88 H Absolute Lymphocytes (1.2 - 3.4 /CUMM) 1.8 Lymphocytes (20.5 - 51.1 %) 8 L Monocytes (1.7 - 9.3 %) 4 Absolute Monocytes (0.10 - 0.60 /CUMM) 1.6 H Absolute Eosinophils (0.0 - 0.7 /CUMM) 0 Absolute Basophils (0.0 - 0.2 /CUMM) 0 Platelet Estimate (ADEQUATE) ADEQUATE Polychromasia 1+ Poikilocytosis 1+ Basophilic Stippling 1+ Ovalocytes 1+ PUBS MCHC (33.0 - 37.0 G/DL) 33.1 Other Body Source Fld Total RBCs Counted (%) 100 10/06 10/06 0530 0445 Blood Gas pH (7.35 - 7.45 PH) 7.43 pCO2 (35 - 45 TORR) 42 pO2 (80 - 100 TORR) 124 H HCO3 (21 - 28 MEQ/L) 27 ABG O2 Sat (Measured) (>96.0 %) 98.0 P-50 (Temp Corrected) Y Carboxyhemoglobin (1.5 - 5.0 %) 0.3 L O2 Concentration % 35% Temperature (97.0 - 100.0 FARH) 98.4 Respiration Rate (BPM) 18 O2 Delivery Method ESPRIT Vent Mode AC Expiratory Pressure (CMH2O/P) 10 Tidal Volume (CC) 600 Chemistry Sodium (137 - 145 mmol/L) 139 Potassium (3.5 - 5.1 mmol/L) 4.0 Chloride (98 - 107 mmol/L) 103 Carbon Dioxide (22 - 30 mmol/L) 31 H Anion Gap (5 - 16) 5 BUN (9 - 20 mg/dL) 17 Creatinine (0.7 - 1.2 mg/dL) 1.0 Estimated GFR (>60 ml/min) > 60 Glucose (65 - 99 mg/dL) 140 H Calcium (8.4 - 10.2 mg/dL) 7.7 L Phosphorus (2.5 - 4.5 mg/dL) 2.1 L Magnesium (1.6 - 2.3 mg/dL) 2.4 H Total Bilirubin (0.2 - 1.3 mg/dL) 0.9 AST (17 - 59 U/L) 279 H ALT (21 - 72 U/L) 495 H Albumin (3.5 - 5.0 g/dL) 2.4 L Hematology CBC w Diff MAN DIFF ORDERED WBC (4.8 - 10.8 /CUMM) 14.5 H RBC (4.70 - 6.10 /CUMM) 3.48 L Hgb (14.0 - 18.0 G/DL) 10.6 L Hct (42 - 52 %) 31.1 L MCV (80.0 - 94.0 FL) 89.3 MCH (27.0 - 31.0 PG) 30.4 RDW (11.5 - 14.5 %) 13.2 Plt Count (130 - 400 /CUMM) 189 MPV (7.4 - 10.4 FL) 9.3 Gran % (42.2 - 75.2 %) 84.4 H Lymphocytes % (20.5 - 51.1 %) 7.1 L Monocytes % (1.7 - 9.3 %) 8.5 Eosinophils % (0 - 5 %) 0 Basophils % (0.0 - 2.0 %) 0 L Absolute Granulocytes (1.4 - 6.5 /CUMM) 12.3 H Segmented Neutrophils (42.2 - 75.2 %) 84 H Band Neutrophils (0.0 - 5.0 %) 2 Absolute Lymphocytes (1.2 - 3.4 /CUMM) 1.0 L Lymphocytes (20.5 - 51.1 %) 4 L Monocytes (1.7 - 9.3 %) 10 H Absolute Monocytes (0.10 - 0.60 /CUMM) 1.2 H Absolute Eosinophils (0.0 - 0.7 /CUMM) 0 Absolute Basophils (0.0 - 0.2 /CUMM) 0 Nucleated RBCs (0.0 - 0.0 /100WBC) 1 H Platelet Estimate (ADEQUATE) ADEQUATE Polychromasia 1+ Basophilic Stippling SLIGHT Ovalocytes FEW PUBS MCHC (33.0 - 37.0 G/DL) 34.0 Miscellaneous Phlebotomy Draw Site RIGHT RADIAL Other Body Source Fld Total RBCs Counted (%) 100 10/06 05 0000 1800 Chemistry Sodium (137 - 145 mmol/L) 141 138 Potassium (3.5 - 5.1 mmol/L) 4.5 4.1 Chloride (98 - 107 mmol/L) 105 104 Carbon Dioxide (22 - 30 mmol/L) 30 28 Anion Gap (5 - 16) 6 6 BUN (9 - 20 mg/dL) 17 18 Creatinine (0.7 - 1.2 mg/dL) 1.0 1.1 Estimated GFR (>60 ml/min) > 60 > 60 Glucose (65 - 99 mg/dL) 132 H 148 H Lactic Acid (0.7 - 2.1 mmol/L) 2.0 Calcium (8.4 - 10.2 mg/dL) 7.7 L 7.3 L Phosphorus (2.5 - 4.5 mg/dL) 2.0 L 1.7 L Magnesium (1.6 - 2.3 mg/dL) 2.4 H 2.4 H Total Bilirubin (0.2 - 1.3 mg/dL) 1.0 1.2 AST (17 - 59 U/L) 332 H 376 H ALT (21 - 72 U/L) 522 H 549 H Creatine Kinase (55 - 170 U/L) 6196 H Troponin I (<0.11 ng/ml) 0.81 *H Albumin (3.5 - 5.0 g/dL) 2.4 L 2.5 L Hematology CBC w Diff NO MAN DIFF REQ WBC (4.8 - 10.8 /CUMM) 14.3 H RBC (4.70 - 6.10 /CUMM) 3.77 L Hgb (14.0 - 18.0 G/DL) 11.3 L Hct (42 - 52 %) 33.8 L MCV (80.0 - 94.0 FL) 89.7 MCH (27.0 - 31.0 PG) 29.8 RDW (11.5 - 14.5 %) 12.7 Plt Count (130 - 400 /CUMM) 215 MPV (7.4 - 10.4 FL) 9.2 Gran % (42.2 - 75.2 %) 93.0 H Lymphocytes % (20.5 - 51.1 %) 2.9 L Monocytes % (1.7 - 9.3 %) 4.0 Eosinophils % (0 - 5 %) 0.1 Basophils % (0.0 - 2.0 %) 0 L Absolute Granulocytes (1.4 - 6.5 /CUMM) 13.3 H Absolute Lymphocytes (1.2 - 3.4 /CUMM) 0.4 L Absolute Monocytes (0.10 - 0.60 /CUMM) 0.6 Absolute Eosinophils (0.0 - 0.7 /CUMM) 0 Absolute Basophils (0.0 - 0.2 /CUMM) 0 PUBS MCHC (33.0 - 37.0 G/DL) 33.2 05/30 05/30 1204 1155 Blood Gas pH (7.35 - 7.45 PH) 7.36 pCO2 (35 - 45 TORR) 50 H pO2 (80 - 100 TORR) 234 H HCO3 (21 - 28 MEQ/L) 27 ABG O2 Sat (Measured) (>96.0 %) 99.0 P-50 (Temp Corrected) YES Carboxyhemoglobin (1.5 - 5.0 %) 0.3 L O2 Concentration % 70% Temperature (97.0 - 100.0 FARH) 99.9 Respiration Rate (BPM) 18 O2 Delivery Method VENT Vent Mode AC Expiratory Pressure (CMH2O/P) 10 Tidal Volume (CC) 600 Chemistry Sodium (137 - 145 mmol/L) 141 Potassium (3.5 - 5.1 mmol/L) 4.0 Chloride (98 - 107 mmol/L) 105 Carbon Dioxide (22 - 30 mmol/L) 28 Anion Gap (5 - 16) 8 BUN (9 - 20 mg/dL) 23 H Creatinine (0.7 - 1.2 mg/dL) 1.5 H Estimated GFR (>60 ml/min) 59 L Glucose (65 - 99 mg/dL) 127 H Lactic Acid (0.7 - 2.1 mmol/L) 2.4 H Calcium (8.4 - 10.2 mg/dL) 7.3 L Phosphorus (2.5 - 4.5 mg/dL) 2.3 L Magnesium (1.6 - 2.3 mg/dL) 2.4 H Total Bilirubin (0.2 - 1.3 mg/dL) 1.3 AST (17 - 59 U/L) 509 H ALT (21 - 72 U/L) 562 H Troponin I (<0.11 ng/ml) 1.61 *H Albumin (3.5 - 5.0 g/dL) 2.6 L Hematology CBC w Diff MAN DIFF ORDERED WBC (4.8 - 10.8 /CUMM) 17.1 H RBC (4.70 - 6.10 /CUMM) 3.97 L Hgb (14.0 - 18.0 G/DL) 11.8 L Hct (42 - 52 %) 35.2 L MCV (80.0 - 94.0 FL) 88.6 MCH (27.0 - 31.0 PG) 29.8 RDW (11.5 - 14.5 %) 12.5 Plt Count (130 - 400 /CUMM) 243 MPV (7.4 - 10.4 FL) 8.9 Gran % (42.2 - 75.2 %) 89.9 H Lymphocytes % (20.5 - 51.1 %) 4.4 L Monocytes % (1.7 - 9.3 %) 5.6 Eosinophils % (0 - 5 %) 0 Basophils % (0.0 - 2.0 %) 0.1 Absolute Granulocytes (1.4 - 6.5 /CUMM) 15.4 H Segmented Neutrophils (42.2 - 75.2 %) 67 Band Neutrophils (0.0 - 5.0 %) 19 H Absolute Lymphocytes (1.2 - 3.4 /CUMM) 0.8 L Lymphocytes (20.5 - 51.1 %) 7 L Monocytes (1.7 - 9.3 %) 7 Absolute Monocytes (0.10 - 0.60 /CUMM) 1.0 H Absolute Eosinophils (0.0 - 0.7 /CUMM) 0 Absolute Basophils (0.0 - 0.2 /CUMM) 0 Platelet Estimate (ADEQUATE) ADEQUATE Normocytic RBCs VERIFIED Normochromic RBCs VERIFIED Basophilic Stippling 1+ PUBS MCHC (33.0 - 37.0 G/DL) 33.6 Miscellaneous Phlebotomy Draw Site LEFT BRACHIAL Microbiology Date/Time Procedure - Status Source Growth 10/06 1000 Respiratory Culture - RES LOWER RESP 10/06 1000 Gram Stain - RES LOWER RESP 10/06 0957 Respiratory Culture - COLB LOWER RESP 10/06 0957 Gram Stain - COLB LOWER RESP 10/06 0000 Legionella Antigen - COMP URINE ROUT 10/06 0000 Streptococcus pneumoniae Antigen (M - COMP URINE ROUT 10/05 1640 Respiratory Culture - RES LOWER RESP 10/05 1640 Gram Stain - RES LOWER RESP 10/05 1008 Respiratory Culture - CAN LOWER RESP Cancelled: DUPLICATE ORDER 10/05 1008 Gram Stain - CAN LOWER RESP Cancelled: DUPLICATE ORDER 10/04 2100 Surveillance Culture - COMP UPPER RESP 10/04 2100 Surveillance Culture - COMP GI 10/05 1911 Respiratory Culture - CAN LOWER RESP Cancelled: SPECIMEN NOT RECEIVED IN LABORATORY 10/05 1911 Gram Stain - CAN LOWER RESP Cancelled: SPECIMEN NOT RECEIVED IN LABORATORY 10/04 1730 Blood Culture - RES BLOOD 10/04 1714 Blood Culture - RES BLOOD 10/04 1554 Blood Culture - CAN BLOOD Cancelled: Cancelled via OE: Duplicate Order 10/04 1455 Urine Culture - COMP URINE ROUT Impression/Plan Impression/Plan Impression/Plan: Physical exam Pupils were small were reacting to light Neck was supple there was no JVD Heart S1-S2 was heard no significant murmur Chest showed bilateral rales with no significant wheezing with some rhonchi and transmitted sounds. Prolonged expiration Abdominal exam, was soft bowel sounds mild There was no significant edema. SIGNIFICANT DATA BUN is up to 22 creatinine is 1 his lipase is still elevated amylase 179 this LFTs are still high CPKs trending down white count 22 with 8% lymphocytes previous ABG reviewed cultures no growth so far chest x-ray pending IMPRESSION This is an unfortunate 20-year-old gentleman with history suggestive of polysubstance abuse now here with acute respiratory failure with recent cardiopulmonary arrest with unknown downtime most likely related to polysubstance abuse with overdose. Patient seems to be intoxicated with significant amount of cocaine and as well as morphine. His issues include * Acute respiratory failure with significant hemodynamic instability with multiple organ failure related to drug overdose with low flow state * Status post cardiopulmonary arrest with return of spontaneous circulation after 3-4 minutes with one dose of epinephrine, now with vasomotor instability with profound shock * Multiple organ failure including renal failure, Pancreatitis, coronary ischemia now with bilateral severe lung injury with aspiration pna * BIlateral pna, sinusitis * Probable significant anoxic brain injury * Morphine, cocaine overdose * Rule out other causes of profound hypotension including venous thromboembolism but this seems less likely * Vomiting sig aspiration pneumonitis * Pulmonary edema appears to be noncardiogenic with ARDS like picture * Acute renal failure resolved RECOMMENDATION * Continue mechanical ventilator, reduce fio2, start psv trials * Fentanyl patch 75 mcg and then wean drip * PSv trials and extubate * REduce ivf to 80 and change to d5 ns * CHeck cpk Dialy * IV proton pump inhibitor * Subcutaneous heparin * Keep mag at 2, and phosphate at 3 * COnt librium at 25 q 8 and then reduce to 25 bid * Affrin nasal spray bid for three days * Unasyn high dose, check his labs this pm and adjust the dose * Can dc solumedrol * check amylase lipase and lft q48 hrs Extubate pt if stable on psv and give one dose of lasix prior to extubation
--- NOTE | 2016-10-07 09:52 | RADIOLOGY REPORT ---
EXAMINATION: XR PORTABLE CHEST CLINICAL INFORMATION: Double overdose with vomiting and unresponsiveness. Presumptive diagnosis of aspiration pneumonia. COMPARISON: Several prior chest x-rays, most recent of which is dated 10/06/2016. TECHNIQUE: Portable AP semierect view of the chest was obtained. FINDINGS: Endotracheal tube tip approximately 5.5 cm above the mercy. Enteric tube courses into the abdomen with tip not included. The cardiomediastinal silhouette is within normal limits in size. No interval change is noted in the hazy bilateral mid and lower lung zone opacities when compared to prior exam. Low lung volumes are again noted. No pneumothorax is seen. Bony structures are unremarkable. IMPRESSION: 1. Endotracheal tube tip 5.5 cm above the mercy. 2. Enteric tube tip not included but extends into the abdomen. 3. No interval change in bilateral lower lung parenchymal consolidation.
--- NOTE | 2016-10-07 10:51 | PN- Neurology ---
Subjective Subjective: Less psychomotor agitation. Ventilator weaning trial underway Objective Vital Signs and I&Os Vital Signs Date Time Temp Pulse Resp B/P B/P Pulse O2 O2 Flow FiO2 Mean Ox Delivery Rate 10/07 0850 35 10/07 0534 35 10/07 0406 35 10/07 0400 95 Ventilator 35% 10/07 0134 35 10/07 0000 97.3 63 18 100/60 97 Ventilator 35% 10/07 0000 95 Ventilator 35% 10/06 2229 35 10/06 2000 96 Ventilator 45% 10/06 1941 35 10/06 1723 35 10/06 1600 97 Ventilator 45% 10/06 1600 99.3 96 14 94/54 95 Ventilator 45% 10/06 1350 35 10/06 1200 97 Ventilator 45% 10/06 1100 50 Intake & Output 10/07 1600 10/07 0800 10/07 0000 10/06 1600 10/06 0800 10/06 0000 Intake Total 1397 892 953 6027 2005 Output Total 414 469 9850 500 950 Balance 1012 140 -329 1171 1055 Intake, IV 1093 163 908 1610 1855 Intake, Oral 0 Intake, Other 180 150 Intake, Tube 184 120 Feeding Intake, Tube 120 300 Irrigant Number 0 Bowel Movements Output, Urine 201 555 7643 500 950 Physical Exam: Sedated, arousable Opens eyes readily to voice Follow specific motor commands such as showing 2 fingers and wiggling toes Extraocular movements full Facial movements symmetric Motor 5 out of 5 No abnormal involuntary movements Current Medications: Current Medications Sig/Kendra Start time Last Medication Dose Route Stop Time Status Admin Acetaminophen 325 MG Q6P PRN 10/04 1830 AC PO Ampicillin Sodium/ 3,000 MG Q6 10/04 1911 AC 10/07 Sulbactam Sodium IV 0622 Sodium Chloride 100 ML Chlordiazepoxide HCl 25 MG Q8 10/06 0934 AC 10/07 PO 0623 Dextrose/Sodium 1,000 ML .[id number] 10/07 0930 AC 10/07 Chloride IV 0951 Fentanyl Citrate 50 MCG Q72H 10/07 0930 AC TOP Fentanyl Citrate 1,000 MCG Q6H 10/06 1800 AC 10/07 Dextrose/Water 250 ML IV 0950 Fentanyl Citrate 1,000 MCG Q5H 10/05 1245 DC 10/06 Dextrose/Water 250 ML IV 10/06 1800 0608 Furosemide 20 MG ONCE ONE 10/07 0800 DC 10/07 IV 10/07 0801 0828 Heparin Sodium 5,000 UNIT Q8 10/04 2200 AC 10/07 (Porcine) SC 0629 Lorazepam 1 MG Q4P PRN 10/06 0911 AC IV Methylprednisolone 40 MG DAILY 10/05 1003 DC 10/06 IV 0755 Oxymetazoline HCl 2 SPRAY BID 10/05 1000 AC 10/07 MAX 10/07 2201 0951 Pantoprazole Sodium 40 MG DAILY 10/04 1905 AC 10/07 IV 0951 Phosphate 250 MG DAILY 10/07 1000 AC 10/07 PO 0951 Phosphate 250 MG PC AND AT BEDTIME 10/05 1800 DC 10/06 PO 2146 Potassium Chloride 20 MEQ Q1H 10/07 0800 DC 10/07 IV 10/07 0901 0944 Potassium Chloride 40 MEQ ONCE ONE 10/07 0730 DC 10/07 PO 10/07 0731 0828 Sodium Chloride 1,000 ML ONCE ONE 10/06 2345 DC 10/07 IV 10/07 0624 0020 Assessment/Plan Assessment: Toxic metabolic and anoxic encephalopathy following drug overdose of cocaine and opiates Continued gradual clinical improvement Plan: Wean off sedatives and ventilator as able
--- NOTE | 2016-10-07 11:16 | PN- Cardiology ---
Subjective Subjective: The patient remains intubated. He is awake and alert on the ventilator. He denies any chest pain. Further history is not obtainable from the patient since he is on the ventilator. Objective Vital Signs and I&Os Vital Signs Date Time Temp Pulse Resp B/P B/P Pulse O2 O2 Flow FiO2 Mean Ox Delivery Rate 10/07 0850 35 10/07 0534 35 10/07 0406 35 10/07 0400 95 Ventilator 35% 10/07 0134 35 10/07 0000 97.3 63 18 100/60 97 Ventilator 35% 10/07 0000 95 Ventilator 35% 10/06 2229 35 10/06 2000 96 Ventilator 45% 10/06 1941 35 10/06 1723 35 10/06 1600 97 Ventilator 45% 10/06 1600 99.3 96 14 94/54 95 Ventilator 45% 10/06 1350 35 10/06 1200 97 Ventilator 45% Intake & Output 10/07 1600 10/07 0800 10/07 0000 10/06 1600 10/06 0800 10/06 0000 Intake Total 1397 791 301 6285 2005 Output Total 515 188 6167 500 950 Balance 1012 140 -329 1171 1055 Intake, IV 1093 865 591 9552 1855 Intake, Oral 0 Intake, Other 180 150 Intake, Tube 184 120 Feeding Intake, Tube 120 300 Irrigant Number 0 Bowel Movements Output, Urine 894 545 4131 500 950 Physical Exam: Gen: The patient is in no acute distress HEENT: Normal nose, ears, and oropharynx. Pupils equal bilaterally. Conjunctiva normal. Neck: Supple with no JVD, no masses, and no thyromegaly Lungs: Scattered rhonchi bilaterally Heart: RRR, S1, S2, no murmurs. No peripheral edema, 2+ pulses in the lower extremities bilaterally Abdomen: Soft, nontender, no masses. No hepatomegaly. No splenomegaly Extremities: No clubbing or cyanosis. Normal muscle strength in the upper and lower extremities Skin: Normal skin turgor with no skin ulcers or lesions noted. Neuro: Cranial nerves grossly intact. Sensation grossly intact Current Medications: Current Medications Sig/Kendra Start time Last Medication Dose Route Stop Time Status Admin Acetaminophen 325 MG Q6P PRN 10/04 1830 AC PO Ampicillin Sodium/ 3,000 MG Q6 10/04 191 AC 10/07 Sulbactam Sodium IV 0622 Sodium Chloride 100 ML Chlordiazepoxide HCl 25 MG Q8 10/06 0934 AC 10/07 PO 0623 Dextrose/Sodium 1,000 ML .[id number] 10/07 0930 AC 10/07 Chloride IV 0951 Fentanyl Citrate 50 MCG Q72H 10/07 0930 AC 10/07 TOP 1050 Fentanyl Citrate 1,000 MCG Q6H 10/06 1800 AC 10/07 Dextrose/Water 250 ML IV 0950 Fentanyl Citrate 1,000 MCG Q5H 10/05 1245 DC 10/06 Dextrose/Water 250 ML IV 10/06 1800 0608 Furosemide 20 MG ONCE ONE 10/07 0800 DC 10/07 IV 10/07 0801 0828 Heparin Sodium 5,000 UNIT Q8 10/04 2200 AC 10/07 (Porcine) SC 0629 Lorazepam 1 MG Q4P PRN 10/06 0911 AC IV Methylprednisolone 40 MG DAILY 10/05 1003 DC 10/06 IV 0755 Oxymetazoline HCl 2 SPRAY BID 10/05 1000 AC 10/07 MAX 10/07 2201 0951 Pantoprazole Sodium 40 MG DAILY 10/04 1905 AC 10/07 IV 0951 Phosphate 250 MG DAILY 10/07 1000 AC 10/07 PO 0951 Phosphate 250 MG PC AND AT BEDTIME 10/05 1800 DC 10/06 PO 2146 Potassium Chloride 20 MEQ Q1H 10/07 0800 DC 10/07 IV 10/07 0901 0944 Potassium Chloride 40 MEQ ONCE ONE 10/07 0730 DC 10/07 PO 10/07 0731 0828 Sodium Chloride 1,000 ML ONCE ONE 10/06 2345 DC 10/07 IV 10/07 0624 0020 Results Last 48 Hrs of Labs/Mics: Laboratory Tests 10/07/16 0430: Anion Gap 10, Estimated GFR > 60, Glucose 109 H, Calcium 8.3 L, Phosphorus 3.1 , Magnesium 2.3, Total Bilirubin 1.0, AST 224 H, ALT 550 H, Creatine Kinase 3876 H, Troponin I 0.41 *H, Albumin 2.9 L, Amylase 179 H, Lipase 687 H, CBC w Diff MAN DIFF ORDERED, RBC 3.76 L, MCV 90.2, MCH 29.9, RDW 13.1, MPV 9.3, Gran % 84.8 H, Lymphocytes % 8.2 L, Monocytes % 7.0, Eosinophils % 0, Basophils % 0 L, Absolute Granulocytes 19.2 H, Segmented Neutrophils 88 H, Absolute Lymphocytes 1.8, Lymphocytes 8 L, Monocytes 4, Absolute Monocytes 1.6 H, Absolute Eosinophils 0, Absolute Basophils 0, Platelet Estimate ADEQUATE, Polychromasia 1+, Poikilocytosis 1+, Basophilic Stippling 1+, Ovalocytes 1+, PUBS MCHC 33.1, Fld Total RBCs Counted 100 10/06/16 2015: Creatine Kinase 5006 H 10/06/16 0530: Anion Gap 5, Estimated GFR > 60, Glucose 140 H, Calcium 7.7 L, Phosphorus 2.1 L, Magnesium 2.4 H, Total Bilirubin 0.9, AST 279 H, ALT 495 H, Albumin 2.4 L , CBC w Diff MAN DIFF ORDERED, RBC 3.48 L, MCV 89.3, MCH 30.4, RDW 13.2, MPV 9.3, Gran % 84.4 H, Lymphocytes % 7.1 L, Monocytes % 8.5, Eosinophils % 0, Basophils % 0 L, Absolute Granulocytes 12.3 H, Segmented Neutrophils 84 H, Band Neutrophils 2, Absolute Lymphocytes 1.0 L, Lymphocytes 4 L, Monocytes 10 H, Absolute Monocytes 1.2 H, Absolute Eosinophils 0, Absolute Basophils 0, Nucleated RBCs 1 H, Platelet Estimate ADEQUATE, Polychromasia 1+, Basophilic Stippling SLIGHT, Ovalocytes FEW, PUBS MCHC 34.0, Fld Total RBCs Counted 100 10/06/16 0445: pH 7.43, pCO2 42, pO2 124 H, HCO3 27, ABG O2 Sat (Measured) 98.0, P-50 (Temp Corrected) Y, Carboxyhemoglobin 0.3 L, O2 Concentration % 35%, Temperature 98.4 , Respiration Rate 18, O2 Delivery Method ESPRIT, Vent Mode AC, Expiratory Pressure 10, Tidal Volume 600, Phlebotomy Draw Site RIGHT RADIAL 10/06/16 0000: Anion Gap 6, Estimated GFR > 60, Glucose 132 H, Calcium 7.7 L, Phosphorus 2.0 L, Magnesium 2.4 H, Total Bilirubin 1.0, AST 332 H, ALT 522 H, Creatine Kinase 6196 H, Troponin I 0.81 *H, Albumin 2.4 L 10/05/16 1800: Anion Gap 6, Estimated GFR > 60, Glucose 148 H, Lactic Acid 2.0, Calcium 7.3 L , Phosphorus 1.7 L, Magnesium 2.4 H, Total Bilirubin 1.2, AST 376 H, ALT 549 H, Albumin 2.5 L, CBC w Diff NO MAN DIFF REQ, RBC 3.77 L, MCV 89.7, MCH 29.8, RDW 12.7, MPV 9.2, Gran % 93.0 H, Lymphocytes % 2.9 L, Monocytes % 4.0, Eosinophils % 0.1, Basophils % 0 L, Absolute Granulocytes 13.3 H, Absolute Lymphocytes 0.4 L, Absolute Monocytes 0.6, Absolute Eosinophils 0, Absolute Basophils 0, [facility] MCHC 33.2 10/05/16 1204: Anion Gap 8, Estimated GFR 59 L, Glucose 127 H, Lactic Acid 2.4 H, Calcium 7.3 L, Phosphorus 2.3 L, Magnesium 2.4 H, Total Bilirubin 1.3, AST 509 H, ALT 562 H, Troponin I 1.61 *H, Albumin 2.6 L, CBC w Diff MAN DIFF ORDERED, RBC 3.97 L, MCV 88.6, MCH 29.8, RDW 12.5, MPV 8.9, Gran % 89.9 H, Lymphocytes % 4.4 L, Monocytes % 5.6, Eosinophils % 0, Basophils % 0.1, Absolute Granulocytes 15.4 H, Segmented Neutrophils 67, Band Neutrophils 19 H, Absolute Lymphocytes 0.8 L, Lymphocytes 7 L, Monocytes 7, Absolute Monocytes 1.0 H, Absolute Eosinophils 0, Absolute Basophils 0, Platelet Estimate ADEQUATE, Normocytic RBCs VERIFIED, Normochromic RBCs VERIFIED, Basophilic Stippling 1+, [facility] MCHC 33.6 10/05/16 1155: pH 7.36, pCO2 50 H, pO2 234 H, HCO3 27, ABG O2 Sat (Measured) 99.0, P-50 (Temp Corrected) YES, Carboxyhemoglobin 0.3 L, O2 Concentration % 70%, Temperature 99.9, Respiration Rate 18, O2 Delivery Method VENT, Vent Mode AC, Expiratory Pressure 10, Tidal Volume 600, Phlebotomy Draw Site LEFT BRACHIAL Microbiology 10/06 URINE ROUT: Legionella Antigen - COMP 10/06 URINE ROUT: Streptococcus pneumoniae Antigen (M - COMP Recent Imaging Studies: Echocardiogram 10/05/16: Normal size left ventricle. Normal left ventricular ejection fraction visually estimated at >55 Trace tricuspid regurgitation. No evidence of pulmonary hypertension. Assessment/Plan Assessment/Plan Assessment: 1. Status post cardiac arrest; likely related to polysubstance abuse 2. Mildly elevated troponin 3. Respiratory failure; intubated 4. Hypotension, improved 5. Normal left ventricular function on echocardiogram Plan: * One-time dose of IV Lasix was given this morning. Will monitor for further evidence of volume overload. * Monitor for arrhythmias on telemetry. Continue telemetry? Yes
--- NOTE | 2016-10-07 13:00 | NUR ---
OVER THE COURSE OF THE MORNING THE FENTANYL GTT WAS DECREASED TO THE FINAL RATE OF 25MCG/HR AT 1200. A 50MCG DURAGESIC PATCH WAS PLACED BEHIND THEPT'S R SHOULDER AT 1100. THE PT WAS PLACED ON A WEANING TRIAL OF CPAP-5/PS-6 AT 0947. AN ABG WAS OBTAINED AT 1150. IN PREPARATION OF THE PT BEING EXTUBATED THE TUBE FEEDINGS WERE STOPPED AT 1100. AT 1205 THE PT WAS EXTUBATED BY MARGIN ANALYST AND PLACED ON A 3LNC. THE SAT IS 95% AT THIS TIME. PT HAS ALREADY ASKED FOR FOOD. EXPLAINED TO THE PT HE OIS STILL DROWSY FORM THE FENTANYL AND WE NEED TO HOLD OFF AT THIS TIME. BOTH PT AND FAMILY SHOW UNDERSTANDING.
--- NOTE | 2016-10-07 14:30 | NUR ---
PT REMAINS DROWSY BUT AROUSABLE, SPEECH IS SLOW. LIBRIUM DUE AT 1400 HELD AND BOTH KENNETH KRISHNAN AND HAYDEN NOTIFIED. REENFORCED WITH THE PT INABILITY TO EAT OF YET. GIVEN SIPS OF WATER WHICH PT TOLERATED WITH NO SIGNS OR SYMPTOMS OF ASPIRATION.
[2016-10-07 16:00] VITALS: BP 120/70
[2016-10-07 18:54] LABS: ABSOLUTE BASOPHIL COUNT 0 /CUMM (0.0-0.2); ABSOLUTE EOSINOPHIL COUNT 0 /CUMM (0.0-0.7); ABSOLUTE GRANULOCYTE CT 15.2 /CUMM (1.4-6.5); ABSOLUTE LYMPH COUNT 2.4 /CUMM (1.2-3.4); ABSOLUTE MONOCYTE COUNT 1.2 /CUMM (0.10-0.60); BASOPHIL % 0.3 % (0.0-2.0); EOSINOPHIL % 0.1 % (0-5); GRANULOCYTE % 80.9 % (42.2-75.2); HEMATOCRIT 32.9 % (42-52); MEAN CORPUSCULAR HGB 29.8 PG (27.0-31.0); MEAN CORPUSCULAR HGB CONC 33.3 G/DL (33.0-37.0); MEAN CORPUSCULAR VOLUME 89.4 FL (80.0-94.0); MEAN PLATELET VOLUME 9.5 FL (7.4-10.4); PLATELET COUNT 246 /CUMM (130-400); RBC DISTRIBUTION WIDTH 13.1 % (11.5-14.5); RED BLOOD CELL CT 3.68 /CUMM (4.70-6.10); WHITE BLOOD CELL COUNT 18.8 /CUMM (4.8-10.8)
--- NOTE | 2016-10-07 22:00 | NUR ---
PATIENT ALERT AND ORIENTED. MONITOR SINUS RHYTHM AT RATE OF 84.NASAL O2 ON AT 3L. NO DYSPNEA NOTED.LUNG SOUNDS CLEAR. PT REMAINS NPO.[id number] LIBRIUM HELD PER .
[2016-10-08] VITALS: BP 116/78
[2016-10-08 05:03] LABS: ABSOLUTE BASOPHIL COUNT 0 /CUMM (0.0-0.2); ABSOLUTE EOSINOPHIL COUNT 0.1 /CUMM (0.0-0.7); ABSOLUTE GRANULOCYTE CT 10.9 /CUMM (1.4-6.5); ABSOLUTE LYMPH COUNT 2.3 /CUMM (1.2-3.4); ABSOLUTE MONOCYTE COUNT 1.2 /CUMM (0.10-0.60); BASOPHIL % 0.1 % (0.0-2.0); EOSINOPHIL % 0.5 % (0-5); GRANULOCYTE % 75.7 % (42.2-75.2); HEMATOCRIT 30.8 % (42-52); MEAN CORPUSCULAR HGB 30.1 PG (27.0-31.0); MEAN CORPUSCULAR HGB CONC 33.5 G/DL (33.0-37.0); MEAN CORPUSCULAR VOLUME 89.8 FL (80.0-94.0); MEAN PLATELET VOLUME 9.1 FL (7.4-10.4); PLATELET COUNT 223 /CUMM (130-400); RED BLOOD CELL CT 3.43 /CUMM (4.70-6.10); WHITE BLOOD CELL COUNT 14.4 /CUMM (4.8-10.8)
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
[2016-10-08 08:00] VITALS: BP 110/70
--- NOTE | 2016-10-08 09:54 | RADIOLOGY REPORT ---
EXAMINATION: XR PORTABLE CHEST CLINICAL INFORMATION: Hypoxia. COMPARISON: 10/07/2016. TECHNIQUE: Portable AP upright 70 degree view of the chest was obtained. FINDINGS: Previously identified lines and tubes have been removed. Residual cardiac leads overlie the chest. The heart is enlarged. Lung volumes are diminished. There are developing bilateral pleural effusions small to moderate on the right and small on the left with associated atelectasis versus infiltrate also right side greater than left. IMPRESSION: Developing bilateral effusions with underlying atelectasis, infiltrate thought to be less likely.
--- NOTE | 2016-10-08 10:27 | PN- Pulmonary ---
See Addendum Subjective HPI/Critical Care Issues: Mr. Virk was seen and examined this morning. Resting comfortably in bed. Offers no complaints and states that he would like to eat something. Patient continues to be on supplemental oxygen by nasal cannula, 3 L. Patient does endorse continued cough. Cough is productive in nature. Patient states that phlegm is red in color. Patient denies any fever, chills, nausea, vomiting. Patient's father, Nolan is at bedside. 24 Hour Events: No Events Reported Objective Current Medications: Current Medications Sig/Kenrda Start time Last Medication Dose Route Stop Time Status Admin Acetaminophen 325 MG Q6P PRN 10/04 1830 AC PO Ampicillin Sodium/ 3,000 MG Q6 10/04 1911 AC 10/08 Sulbactam Sodium IV 0629 Sodium Chloride 100 ML Chlordiazepoxide HCl 25 MG BID 10/08 1000 AC 10/08 PO 0830 Chlordiazepoxide HCl 25 MG Q8 10/06 0934 DC 10/07 PO 0623 Dextrose/Sodium 1,000 ML .[id number] 10/07 0930 DC 10/08 Chloride IV 0002 Fentanyl Citrate 50 MCG Q72H 10/07 0930 AC 10/07 TOP 1050 Fentanyl Citrate 1,000 MCG Q6H 10/06 1800 DC 10/07 Dextrose/Water 250 ML IV 0950 Furosemide 20 MG ONCE ONE 10/08 0815 DC 10/08 IV 10/08 0816 0817 Heparin Sodium 5,000 UNIT Q8 10/04 2200 AC 10/08 (Porcine) SC 0629 Ketorolac 30 MG ONCE ONE 10/07 2145 DC 10/07 Tromethamine IV 10/07 2146 2156 Lorazepam 1 MG Q4P PRN 10/06 0911 AC IV Omeprazole 40 MG DAILY AC 10/08 0718 AC 10/08 PO 0823 Oxymetazoline HCl 2 SPRAY BID 10/05 1000 DC 10/07 MAX 10/07 2201 2206 Pantoprazole Sodium 40 MG DAILY 10/04 1905 DC 10/07 IV 0951 Phosphate 250 MG DAILY 10/07 1000 AC 10/08 PO 10/08 1100 0814 Potassium Chloride 60 MEQ ONCE ONE 10/08 0730 DC 10/08 PO 10/08 0731 0825 Potassium Chloride 10 MEQ ONCE ONE 10/07 2130 DC 10/07 IV 10/07 2131 2159 Vital Signs & I&O Last 24 Hrs of Vitals and I&O: Vital Signs Date Time Temp Pulse Resp B/P B/P Pulse O2 O2 Flow FiO2 Mean Ox Delivery Rate 10/08 0800 96 Nasal 3.0L Cannula 10/08 08 97.7 78 24 110/70 96 Nasal 3.0L Cannula 10/08 0400 95 Nasal 3.0L Cannula 10/08 0000 96 Nasal 3.0L Cannula 10/08 0000 99.0 84 22 116/78 96 Nasal 3.0L Cannula 10/07 2000 95 Nasal 3.0L Cannula 10/07 1600 97 Nasal 3.0L Cannula 10/07 1600 97.7 84 18 120/70 97 Nasal 3.0L Cannula 10/07 1518 Ventilator 35% 10/07 1511 Ventilator 35% 10/07 1200 97 Ventilator 35% Intake & Output 10/08 1600 10/08 0800 06 0000 Intake Total 691 740 Output Total 580 460 Balance 111 280 Intake, IV 691 740 Output, Urine 580 460 Impression/Plan Impression/Plan Impression/Plan: Physical exam Pupils were small were reacting to light Neck was supple there was no JVD Heart S1-S2 was heard no significant murmur Chest showed bilateral rales with no significant wheezing with some rhonchi and transmitted sounds. Prolonged expiration Abdominal exam, was soft bowel sounds mild There was no significant edema. IMPRESSION This is an unfortunate 20-year-old gentleman with history suggestive of polysubstance abuse now here with acute respiratory failure with recent cardiopulmonary arrest with unknown downtime most likely related to polysubstance abuse with overdose. Patient seems to be intoxicated with significant amount of cocaine and as well as morphine. His issues include * Resolved Acute respiratory failure with significant hemodynamic instability with multiple organ failure related to drug overdose with low flow state / Status post cardiopulmonary arrest with return of spontaneous circulation after 3-4 minutes with one dose of epinephrine, with sig shock requiring multiple pressors now off pressors and stable * REsolving Multiple organ failure including renal failure, Pancreatitis, coronary ischemia now with Resolving bilateral severe lung injury with aspiration pna * Resolved resp failure with initial acute lung injury now extubated, with aspiration upon admission with bilateral pna, improving * BIlateral pna, sinusitis * Recovering anoxic brain injury * Morphine, cocaine overdose * Resolving Pulmonary edema appears to be noncardiogenic with ARDS like picture initially * Acute renal failure resolved * REsolving sig rhabdo and pancreatitis RECOMMENDATION * DC ivf * Lasix one dose IV * OK to eat * IV proton pump inhibitor * Subcutaneous heparin * Keep mag at 2, and phosphate at 3 * wean librium over few days, DC iv prn lorazepam * After the current fentanyl patch can change to 25 mcg for three days * Psych consult today for future rx and plan for rx of his underlying psych condition and withdrawal management * Unasyn high dose, today and change to po augmentin in am and total abx of 7 days * check amylase lipase and lft q48 hrs for one more time Ok to the floor or tele if cardio wishes today under hospitalist svc
--- NOTE | 2016-10-08 11:08 | PN- Neurology ---
Subjective Subjective: Extubated, awake, alert, feeding himself breakfast Mom visiting Objective Vital Signs and I&Os Vital Signs Date Time Temp Pulse Resp B/P B/P Pulse O2 O2 Flow FiO2 Mean Ox Delivery Rate 10/08 0800 96 Nasal 3.0L Cannula 10/08 0800 97.7 78 24 110/70 96 Nasal 3.0L Cannula 10/08 0400 95 Nasal 3.0L Cannula 10/08 0000 96 Nasal 3.0L Cannula 10/08 0000 99.0 84 22 116/78 96 Nasal 3.0L Cannula 10/07 2000 95 Nasal 3.0L Cannula 10/07 1600 97 Nasal 3.0L Cannula 10/07 1600 97.7 84 18 120/70 97 Nasal 3.0L Cannula 10/07 1518 Ventilator 35% 10/07 1511 Ventilator 35% 10/07 1200 97 Ventilator 35% Intake & Output 10/08 1600 10/08 0800 10/08 0000 10/07 1600 10/07 0800 06 0000 Intake Total 449 185 4111 1397 820 Output Total 234 006 5423 385 680 Balance 111 280 -99 1012 140 Intake, IV 691 561 556 3639 400 Intake, Other 100 Intake, Tube 256 184 120 Feeding Intake, Tube 120 300 Irrigant Output, Urine 273 260 6648 385 680 Physical Exam: Awake, alert Oriented to person, place, current [place] president, year. Thought the month was September Attention impaired for 5 letter word reversals Extraocular movements full Facial movements symmetric Tongue midline Grossly intact hearing Normal muscle bulk tone and strength and coordination, with no abnormal involuntary movements Current Medications: Current Medications Sig/Kendra Start time Last Medication Dose Route Stop Time Status Admin Acetaminophen 325 MG Q6P PRN 10/04 1830 AC PO Amoxicillin/ 875 MG Q12 10/09 1000 AC Clavulanate Potassium PO Ampicillin Sodium/ 3,000 MG Q6 10/04 1911 AC 10/08 Sulbactam Sodium IV 10/09 0000 0629 Sodium Chloride 100 ML Chlordiazepoxide HCl 25 MG ONCE ONE 10/10 1999 AC PO 10/09 2000 Chlordiazepoxide HCl 25 MG BID 10/08 1000 AC 10/08 PO 10/09 0600 0830 Chlordiazepoxide HCl 25 MG Q8 10/06 0934 DC 10/07 PO 0623 Dextrose/Sodium 1,000 ML .[id number] 10/07 0930 DC 06/02 Chloride IV 0002 Fentanyl Citrate 25 MCG Q72H 10/08 1100 AC TOP 10/10 1000 Fentanyl Citrate 50 MCG Q72H 10/07 0930 DC 10/07 TOP 10/10 0930 1050 Fentanyl Citrate 1,000 MCG Q6H 10/06 1800 DC 10/07 Dextrose/Water 250 ML IV 0950 Furosemide 20 MG ONCE ONE 10/08 0815 DC 10/08 IV 10/08 0816 0817 Heparin Sodium 5,000 UNIT Q8 10/04 2200 AC 10/08 (Porcine) SC 0629 Ketorolac 30 MG ONCE ONE 10/07 2145 DC 10/07 Tromethamine IV 10/07 2146 2156 Lorazepam 1 MG Q4P PRN 10/06 0911 DC IV Omeprazole 40 MG DAILY AC 10/08 0718 AC 10/08 PO 0823 Oxymetazoline HCl 2 SPRAY BID 10/05 1000 DC 10/07 MAX 10/07 2201 2206 Pantoprazole Sodium 40 MG DAILY 10/04 1905 DC 10/07 IV 0951 Phosphate 250 MG DAILY 10/07 1000 DC 10/08 PO 10/08 1100 0814 Potassium Chloride 60 MEQ ONCE ONE 10/08 0730 DC 10/08 PO 10/08 0731 0825 Potassium Chloride 10 MEQ ONCE ONE 10/07 2130 DC 10/07 IV 10/07 2131 2159 Results Last 24 Hours of Lab Results: Laboratory Tests 10/08 10/07 0415 1750 Chemistry Sodium (137 - 145 mmol/L) 141 140 Potassium (3.5 - 5.1 mmol/L) 3.6 4.0 Chloride (98 - 107 mmol/L) 108 H 105 Carbon Dioxide (22 - 30 mmol/L) 27 29 Anion Gap (5 - 16) 7 6 BUN (9 - 20 mg/dL) 22 H 24 H Creatinine (0.7 - 1.2 mg/dL) 0.9 1.1 Estimated GFR (>60 ml/min) > 60 > 60 Glucose (65 - 99 mg/dL) 80 88 Calcium (8.4 - 10.2 mg/dL) 8.3 L 8.6 Phosphorus (2.5 - 4.5 mg/dL) 3.4 3.4 Magnesium (1.6 - 2.3 mg/dL) 2.0 2.2 Total Bilirubin (0.2 - 1.3 mg/dL) 1.1 1.0 AST (17 - 59 U/L) 92 H 141 H ALT (21 - 72 U/L) 370 H 469 H Creatine Kinase (55 - 170 U/L) 1436 H 2322 H Troponin I (<0.11 ng/ml) 0.40 *H Albumin (3.5 - 5.0 g/dL) 2.6 L 2.9 L Hematology CBC w Diff NO MAN DIFF REQ NO MAN DIFF REQ WBC (4.8 - 10.8 /CUMM) 14.4 H 18.8 H RBC (4.70 - 6.10 /CUMM) 3.43 L 3.68 L Hgb (14.0 - 18.0 G/DL) 10.3 L 10.9 L Hct (42 - 52 %) 30.8 L 32.9 L MCV (80.0 - 94.0 FL) 89.8 89.4 MCH (27.0 - 31.0 PG) 30.1 29.8 RDW (11.5 - 14.5 %) 13.0 13.1 Plt Count (130 - 400 /CUMM) 223 246 MPV (7.4 - 10.4 FL) 9.1 9.5 Gran % (42.2 - 75.2 %) 75.7 H 80.9 H Lymphocytes % (20.5 - 51.1 %) 15.7 L 12.5 L Monocytes % (1.7 - 9.3 %) 8.0 6.2 Eosinophils % (0 - 5 %) 0.5 0.1 Basophils % (0.0 - 2.0 %) 0.1 0.3 Absolute Granulocytes (1.4 - 6.5 /CUMM) 10.9 H 15.2 H Absolute Lymphocytes (1.2 - 3.4 /CUMM) 2.3 2.4 Absolute Monocytes (0.10 - 0.60 /CUMM) 1.2 H 1.2 H Absolute Eosinophils (0.0 - 0.7 /CUMM) 0.1 0 Absolute Basophils (0.0 - 0.2 /CUMM) 0 0 PUBS MCHC (33.0 - 37.0 G/DL) 33.5 33.3 / 1145 Blood Gas pH (7.35 - 7.45 PH) 7.43 pCO2 (35 - 45 TORR) 39 pO2 (80 - 100 TORR) 113 H HCO3 (21 - 28 MEQ/L) 25 ABG O2 Sat (Measured) (>96.0 %) 97.0 Carboxyhemoglobin (1.5 - 5.0 %) 0.3 L O2 Concentration % .35 O2 Delivery Method VENT Vent Mode CPAP Expiratory Pressure (CMH2O/P) 5 Pressure Support (CMH2O/P) 6 Miscellaneous Phlebotomy Draw Site LEFT RADIAL Assessment/Plan Assessment: Steady neurologic improvement following anoxic encephalopathy related to drug overdose Plan: Continue to wean off sedating meds as able Psychiatry and social work consultations regarding substance abuse Will see PRN
--- NOTE | 2016-10-08 12:36 | ULTRASOUND REPORT ---
EXAMINATION: US TRIPLEX UPPER EXTREMITY, RIGHT CLINICAL INFORMATION: Right upper extremity superficial clot October 05 COMPARISON: 10/05/2016 ultrasound TECHNIQUE: Color-flow triplex imaging with spectral analysis and compression Doppler were performed on the right upper extremity. FINDINGS: The visualized portions of the right internal jugular vein, innominate vein, subclavian vein, axillary vein, brachial vein and basilic vein appear patent. There is however thrombus seen within the antecubital vein extending to the cephalic vein. This is nonocclusive. The appearance and distribution appears similar to the prior study IMPRESSION: Nonocclusive thrombus is again seen within the antecubital vein extending to the cephalic vein in the distribution similar to the recent 10/05/2016 exam
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
[2016-10-08 16:02] VITALS: BP 140/70
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
[2016-10-09 01:01] VITALS: BP 144/72
[2016-10-09 08:05] LABS: ABSOLUTE EOSINOPHIL COUNT 0.3 /CUMM (0.0-0.7); ABSOLUTE GRANULOCYTE CT 15.6 /CUMM (1.4-6.5); ABSOLUTE LYMPH COUNT 2.3 /CUMM (1.2-3.4)
[2016-10-09 08:29] VITALS: BP 138/82
[2016-10-09 08:43] VITALS: BP 138/82
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
[2016-10-09 09:04] LABS: ABSOLUTE BASOPHIL COUNT 0 /CUMM (0.0-0.2); ABSOLUTE MONOCYTE COUNT 1.6 /CUMM (0.10-0.60); BASOPHIL % 0.2 % (0.0-2.0); EOSINOPHIL % 1.3 % (0-5); GRANULOCYTE % 78.4 % (42.2-75.2); MEAN CORPUSCULAR HGB CONC 33.6 G/DL (33.0-37.0); MEAN CORPUSCULAR VOLUME 89.5 FL (80.0-94.0); MEAN PLATELET VOLUME 9.4 FL (7.4-10.4); PLATELET COUNT 290 /CUMM (130-400); RBC DISTRIBUTION WIDTH 13.3 % (11.5-14.5); WHITE BLOOD CELL COUNT 19.9 /CUMM (4.8-10.8)
[2016-10-09 09:19] LABS: HEMATOCRIT 39.2 % (42-52); RED BLOOD CELL CT 4.38 /CUMM (4.70-6.10)
--- NOTE | 2016-10-09 14:31 | ULTRASOUND REPORT ---
EXAMINATION: US ABDOMEN LIMITED CLINICAL INFORMATION: Elevated LFT. COMPARISON: None TECHNIQUE: Real-time imaging of the right upper quadrant abdominal viscera. FINDINGS: PANCREAS: The visualized parts of the head and body of pancreas are unremarkable. The distal body and tail of pancreas are not the due to superimposed bowel gas patients body habitus. LIVER: There is mild increase hepatic parenchymal echogenicity which could be due to underlying hepatocellular disease such as hepatic steatosis. No focal lesion or intrahepatic biliary duct dilatation. The portal vein is patent and demonstrates normal direction of flow. GALLBLADDER: The gallbladder is physiologically distended without evidence of stones, sludge, polyps, wall thickening or pericholecystic fluid. COMMON BILE DUCT: Normal in caliber measuring 0.5 cm in diameter. RIGHT KIDNEY: No hydronephrosis. No renal calculi or focal parenchymal lesions. The kidney measures 12.0 cm in maximum dimension. There is normal renal cortical echogenicity and thickness. FREE FLUID: None. IMPRESSION: Mildly increased hepatic parenchymal echogenicity could be due to hepatic steatosis. Clinical correlation is suggested. Partial visualization of the pancreas.
--- NOTE | 2016-10-09 14:38 | RADIOLOGY REPORT ---
EXAMINATION: XR PORTABLE CHEST CLINICAL INFORMATION: Pneumonia COMPARISON: 10/08/2016 at 9:00 AM TECHNIQUE: Portable frontal view of the chest was obtained. FINDINGS: Hypoventilatory exam. Mildly enlarged cardiac silhouette, likely due to low lung volume in a hypoventilatory exam. The mediastinal silhouette is within normal limits. The pulmonary vascularity is unremarkable. There is a 5 cm opacity in the right lower lung with obscuration of part of the right diaphragmatic border. This opacity is a new finding since 10/07/2016 x-ray at 5:44 AM. No pleural effusion. No pneumothorax. IMPRESSION: Hypoventilatory exam. Right lower lobe pulmonary opacity, new since 10/26/2016 chest x-ray at 5:44 AM. Finding could represent atelectasis and/or superimposed pneumonia. Clinical correlation is suggested. Consider follow-up standard PA and lateral chest x-ray.
[2016-10-09 15:55] VITALS: BP 136/82
[2016-10-09 23:21] VITALS: BP 150/80
[2016-10-10 08:55] VITALS: BP 114/64
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
--- NOTE | 2016-10-10 14:40 | PN- Att Addend ---
Attending MD Review Statement Attending Statement Attending MD Statement: examined this patient, discuss w/resident/PA/HOME APPLIANCE TECHNICIAN, agreed w/resident/PA/HOME APPLIANCE TECHNICIAN, discussed with family, reviewed EMR data (avail), discussed w/ nursing Attending Assessment/Plan: Vital Signs Date Time Temp Pulse Resp B/P B/P Pulse O2 O2 Flow FiO2 Mean Ox Delivery Rate 10/10 0855 98.7 82 18 114/64 92 Room Air 10/09 2321 99.0 92 16 150/80 93 Room Air 10/09 1555 98.7 79 20 136/82 92 Room Air Patient seen and examined at bedside. Discussed with patient as well as patient 's family at bedside the care plan. Subjective- patient denies any abdominal pain. Denies any chest pain or shortness of breath or cough. Objective-abdominal exam reveals soft nontender abdomen, no rigidity or guarding noted. No discoloration of abdominal wall noted. No flank tenderness. Cardiovascular S1-S2 regular rate rhythm. Lungs clear to auscultation bilaterally. Patient is alert oriented 3 and clearly knows are intact. Labs- patient is a very difficult stick and we were unable to get any labs today on him so we will try tomorrow morning. CAT scan of abdomen on 10/04- nonspecific fat stranding of the tail of pancreas. A/P- Acute pancreatitis-patient's amylase at the time of admission was high and lipase was normal and now it has reversed with the amylase being normal and the lipase is going up. We will check lipid panel in the morning and will repeat LFTs in the morning along with amylase and lipase. Patient's abdominal exam is benign and is tolerating by mouth diet. Aspiration pneumonia-continue patient on by mouth Augmentin. We will repeat a CBC tomorrow to make sure her white count is trending down. Drug abuse -discussed with patient's family and they would want to discuss drug rehabilitation options. We will ask the social media marketing specialist to talk to the family tomorrow. Discussed with case management today
--- NOTE | 2016-10-10 15:00 | NUR ---
Lab unable to draw patient labs this am. MST on day shift attempted with no success, mother refusing further blood draws today. Informed MD internet architect Francisco Charles, will continue to monitor.
[2016-10-10 15:41] VITALS: BP 145/82
[2016-10-11 00:51] VITALS: BP 128/52
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
[2016-10-11 07:44] LABS: ABSOLUTE BASOPHIL COUNT 0.1 /CUMM (0.0-0.2); ABSOLUTE EOSINOPHIL COUNT 0.4 /CUMM (0.0-0.7); ABSOLUTE GRANULOCYTE CT 14.9 /CUMM (1.4-6.5); ABSOLUTE LYMPH COUNT 1.7 /CUMM (1.2-3.4); ABSOLUTE MONOCYTE COUNT 1.7 /CUMM (0.10-0.60); BASOPHIL % 0.3 % (0.0-2.0); EOSINOPHIL % 1.9 % (0-5); GRANULOCYTE % 79.4 % (42.2-75.2); MEAN CORPUSCULAR HGB 29.8 PG (27.0-31.0); MEAN CORPUSCULAR HGB CONC 33.4 G/DL (33.0-37.0); MEAN CORPUSCULAR VOLUME 89.2 FL (80.0-94.0); MEAN PLATELET VOLUME 8.7 FL (7.4-10.4); PLATELET COUNT 334 /CUMM (130-400); RED BLOOD CELL CT 4.59 /CUMM (4.70-6.10); WHITE BLOOD CELL COUNT 18.7 /CUMM (4.8-10.8)
[2016-10-11 07:56] VITALS: BP 154/80
--- NOTE | 2016-10-11 09:02 | NUR ---
Sw received electronic referral from MD Rhea for Drug overdose ( cocaine and heroin;postive utox ) non-responsive. Discharge planning. Rehab vs IOP. Pt with [facility] [place]. After Pt discussed in rounds, sw to pt room. Pt found to be in the shower. Mother sitting in chair. Sw respecting pt confidentiality and reported would be back this morning. Mother did not ask any questions in which sw could give generic answers.
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
--- NOTE | 2016-10-11 15:36 | RADIOLOGY REPORT ---
EXAMINATION: XR PORTABLE CHEST CLINICAL INFORMATION: Pleural effusion. Pancreatitis. COMPARISON: Chest radiography 10/09/2016. TECHNIQUE: Portable frontal view of the chest was obtained. FINDINGS: The lungs are fairly well expanded. No evidence of large pleural effusion. Interval decrease in conspicuity of the right lower lung opacity compared to radiography 10/09/2016. No pulmonary edema or pneumothorax. No mediastinal widening. No acute osseous abnormalities. IMPRESSION: 1. No evidence of significant pleural effusion on this single frontal image. 2. Interval decrease in conspicuity of the right lower lung opacity compared to exam 10/09/2016.
--- NOTE | 2016-10-11 15:47 | NUR ---
PT AT 1430 C/O CHEST PAIN 01/16. TYLENOL GIVEN AND DR. SAGE MADE AWARE. TROP AND EKG DONE. CXR ORDERED. PT MADE NPO, FLUIDS STARTED. PT STATED SHE WAS STARTING TO FEEL BETTER. WILL CONTINUE TO MONITOR.
[2016-10-11 16:16] VITALS: BP 150/80
--- NOTE | 2016-10-11 16:34 | Cons- Gastroenterology ---
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 diminished. He denied any diarrhea, constipation, obstipation, tenesmus, or rectal bleeding. He denied any jaundice, dark urine, light stools, or pruritus. He is not taking any supplemental medications with thiazide. He was not on any outpatient medications, just the above illicit drug use, cigarette smoking, & weekend EtOH. He currently is on Omeprazole and Zofran, but is asymptomatic. Her denies any symptoms of UTI, URI, acute arthralgias, or rash. *Please note, 10/05/16: PT 15.1, INR 1.: TG 177. *Clinically, the patient's chest wall discomfort (post CPR), seems to be the source of his symptoms. *This is reproducible by touch. The elevated lipase is noted, but he has a benign, nontender, abdominal exam. I am not certain the elevated lipase is clinically relevant. The admission lipase was normal, with an elevated amylase, which may have been salivary in nature. The amylase is much less specific for the pancreas than the lipase. The patient tolerated pizza uneventfully earlier today, 10/11/16, for lunch. His TG 177 are not contributing to this. Negative Calderon sign. LFTs are resolving. GI ROS are essentially negative. The transaminitis was undoubtedly from shock liver/ischemic hepatitis, post drug OD & hypotension, possibly with a toxic metabolic component, s/p polysubstance abuse, as possibly was the lipase. Cigarette smoking is also a risk factor for pancreatitis, again, I do not think he has this clinically. It is possible he could have sustained some abdominal trauma, post CPR. His INR was relatively stable. Please note, there was some nonspecific fat stranding at the tail of the pancreas on the noncontrast admission CT, but this is nonspecific. No biliary pathology was seen on sono. *SUGGEST: Feed patient as tolerated. Consider sternal X rays & rib series. Doubt need for CT abdomen with pancreatic protocol (dynamic bolus IV contrast, as GFR has normalized). Unless the patient develops GI symptoms, I would not bother repeating serial lipases. Doubt need for EGD. Doubt need for genetic testing and/or IgG4 levels, etc., regarding the pancreas. Consider checking HIV (based on lifestyle) & repeating PT with INR, s/p shock liver. May continue Omeprazole & Zofran if needed, but the patient is currently asymptomatic from a GI perspective, except for rare reflux. I encouraged lifestyle modifications, with cessation of illicit drugs, alcohol, and cigarettes. I will be happy to follow the patient as an outpatient, to recheck his LFTs (+/- lipase) in 1-2 months after discharge. The patient was given my office number. Follow-up with multiple consultants. The above was discussed with the patient, the patient's mother, Kristan Virk (at the bedside, as per patient request), and with the medical housestaff. Further inpatient GI follow up as needed. Problem List: 1. Transaminitis 2. Ischemic hepatitis 3. Narcotic overdose 4. Chest wall pain 5. Elevated lipase Copies To: LACIE SESAY,WILFRED Sam; ARIELLA SESAY,ALYCE Sam; HEATHER SESAY,MARYANNE Swift; IZABELLA SESAY,JULIA Consult Acknowledgment - Thank you for your consult request.
[2016-10-12 00:08] VITALS: BP 138/72
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
[2016-10-12 07:47] LABS: ABSOLUTE BASOPHIL COUNT 0 /CUMM (0.0-0.2); ABSOLUTE EOSINOPHIL COUNT 0.5 /CUMM (0.0-0.7); ABSOLUTE GRANULOCYTE CT 14.7 /CUMM (1.4-6.5); ABSOLUTE LYMPH COUNT 1.7 /CUMM (1.2-3.4); ABSOLUTE MONOCYTE COUNT 2.1 /CUMM (0.10-0.60); BASOPHIL % 0.1 % (0.0-2.0); EOSINOPHIL % 2.5 % (0-5); GRANULOCYTE % 77.4 % (42.2-75.2); HEMATOCRIT 38.5 % (42-52); MEAN CORPUSCULAR HGB 29.7 PG (27.0-31.0); MEAN CORPUSCULAR HGB CONC 33.3 G/DL (33.0-37.0); MEAN CORPUSCULAR VOLUME 89.2 FL (80.0-94.0); MEAN PLATELET VOLUME 8.5 FL (7.4-10.4); PLATELET COUNT 338 /CUMM (130-400); RBC DISTRIBUTION WIDTH 13.4 % (11.5-14.5); RED BLOOD CELL CT 4.32 /CUMM (4.70-6.10); WHITE BLOOD CELL COUNT 18.9 /CUMM (4.8-10.8)
[2016-10-12 08:17] LABS: PT 11.9 SEC (9.4-12.5)
[2016-10-12 08:37] VITALS: BP 108/51
--- NOTE | 2016-10-12 10:05 | RADIOLOGY REPORT ---
EXAMINATION: XR STERNUM CLINICAL INFORMATION: Chest pain after CPR. Evaluate for rib and sternal trauma. COMPARISON: None TECHNIQUE: 2 views of the sternum were obtained. FINDINGS: Sternum and manubrium are intact. There is no gross paraspinal soft tissue swelling. Sternoclavicular joints are unremarkable. The visualized left-sided ribs appear intact. IMPRESSION: No evidence of sternal or left rib fracture.
--- NOTE | 2016-10-12 11:46 | PN- Cardiology ---
Subjective Subjective: The patient reports that overnight he had sharp pains in the left side of his chest x-ray 6 out of 10 in severity, and did not radiate. The pains lasted for approximately 15 minutes. He is now pain-free. No current shortness of breath. No palpitations. No diaphoresis. Objective Vital Signs and I&Os Vital Signs Date Time Temp Pulse Resp B/P B/P Pulse O2 O2 Flow FiO2 Mean Ox Delivery Rate 10/13 0737 99.8 102 16 108/51 93 Room Air 10/12 0008 99.5 95 18 138/72 94 Room Air 10/11 1616 99.5 91 18 150/80 95 Room Air Intake & Output 10/12 1600 10/12 0800 10/12 0000 10/11 1600 10/11 0800 10/11 0000 Intake Total 200 500 480 200 132 Output Total Balance 200 500 480 200 132 Intake, IV 400 12 Intake, Oral 200 100 480 200 120 Patient 233 lb Weight Weight Standing Scale Measurement Method Physical Exam: Gen: The patient is in no acute distress HEENT: Normal nose, ears, and oropharynx. Pupils equal bilaterally. Conjunctiva normal. Neck: Supple with no JVD, no masses, and no thyromegaly Lungs: Scattered rhonchi bilaterally Heart: RRR, S1, S2, no murmurs. No peripheral edema, 2+ pulses in the lower extremities bilaterally Abdomen: Soft, nontender, no masses. No hepatomegaly. No splenomegaly Extremities: No clubbing or cyanosis. Normal muscle strength in the upper and lower extremities Skin: Normal skin turgor with no skin ulcers or lesions noted. Neuro: Cranial nerves grossly intact. Sensation grossly intact Current Medications: Current Medications Sig/Kendra Start time Last Medication Dose Route Stop Time Status Admin Acetaminophen 325 MG Q6P PRN 10/04 1830 AC 10/11 PO 1419 Amoxicillin/ 875 MG Q12 10/09 1000 AC 10/12 Clavulanate Potassium PO 1004 Fentanyl Citrate 12 MCG Q72H 10/12 1030 10/12 TOP 10/15 1031 1022 Heparin Sodium 5,000 UNIT Q8 10/04 2200 AC 10/12 (Porcine) SC 0552 Ibuprofen 600 MG Q6P PRN 10/12 0830 AC 10/12 PO 1004 Ibuprofen 200 MG ONE TIME ONE 10/11 233 DC 10/11 PO 10/11 2331 2338 Ibuprofen 400 MG ONCE ONE 10/11 2215 DC 10/11 PO 10/11 2216 2220 Ibuprofen 400 MG ONCE ONE 10/11 1900 DC 10/11 PO 10/11 1901 1854 Lactated Ringer's 1,000 ML .Q10H 10/11 1445 AC 10/12 IV 1004 Loratadine 10 MG DAILY 10/11 1000 AC 10/12 PO 1004 Melatonin 5 MG AT BEDTIME 10/10 2200 AC 10/11 PO 2114 Morphine Sulfate 2 MG ONCE ONE 10/12 1030 DC 10/12 IV 10/12 1031 1035 Morphine Sulfate 1 MG ONE TIME ONE 10/12 0545 DC 10/12 IV 10/12 0546 0552 Morphine Sulfate 2 MG ONCE ONE 10/12 0015 DC 10/12 IV 10/12 0016 0015 Omeprazole 40 MG DAILY AC 10/08 0718 AC 10/12 PO 0556 Ondansetron HCl 4 MG Q6P PRN 10/09 1700 AC 10/10 IV 1743 Results Last 48 Hrs of Labs/Mics: Laboratory Tests 10/12/16 1103: HIV 1&2 Ab Western Blot Pending 10/12/1615: Troponin I 0.02, PT 11.9, INR 1.13, CBC w Diff NO MAN DIFF REQ, RBC 4.32 L, MCV 89.2, MCH 29.7, RDW 13.4, MPV 8.5, Gran % 77.4 H, Lymphocytes % 8.8 L, Monocytes % 11.2 H, Eosinophils % 2.5, Basophils % 0.1, Absolute Granulocytes 14.7 H, Absolute Lymphocytes 1.7, Absolute Monocytes 2.1 H, Absolute Eosinophils 0.5, Absolute Basophils 0, PUBS MCHC 33.3 10/11/16 1742: Urine Opiates Screen < 100.00, Methadone Screen < 40, Barbiturate Screen < 60, Ur Phencyclidine Scrn < 6.00, Amphetamines Screen < 100, U Benzodiazepines Scrn 716 H, Urine Cocaine Screen 52, Urine Cannabis Screen < 5.00 10/11/16 1440: Troponin I 0.04 10/11/16 0630: Anion Gap 12, Estimated GFR > 60, BUN/Creatinine Ratio 12.2, Total Bilirubin 1.4 H, Direct Bilirubin 0.3, AST 92 H, ALT 223 H, Alkaline Phosphatase 126, Total Protein 6.3, Albumin 3.5, Triglycerides 177 H, Cholesterol 117, LDL Cholesterol , Calc 48 L, HDL Cholesterol 34 L, Cholesterol/HDL Ratio 3, Amylase 226 H, Lipase 1887 H, CBC w Diff NO MAN DIFF REQ, RBC 4.59 L, MCV 89.2, MCH 29.8, RDW 13.0, MPV 8.7, Gran % 79.4 H, Lymphocytes % 9.2 L, Monocytes % 9.2, Eosinophils % 1.9, Basophils % 0.3, Absolute Granulocytes 14.9 H, Absolute Lymphocytes 1.7, Absolute Monocytes 1.7 H, Absolute Eosinophils 0.4, Absolute Basophils 0.1, PUBS MCHC 33.4 Recent Imaging Studies: Chest x-ray 09/10/16: 1. No evidence of significant pleural effusion on this single frontal image. 2. Interval decrease in conspicuity of the right lower lung opacity compared to exam 10/09/2016. EKG 10/12/16: Normal sinus rhythm. Normal EKG Assessment/Plan Assessment/Plan Assessment: 1. Status post cardiac arrest; likely related to polysubstance abuse 2. Elevated troponin 3. Respiratory failure; intubated 4. Hypotension, improved 5. Normal left ventricular function on echocardiogram Plan: * No further cardiac workup at this time. * We will plan on doing a stress echo as an outpatient once stable. Continue telemetry? Not applicable
--- NOTE | 2016-10-12 14:02 | PN- Att Addend ---
Attending MD Review Statement Attending Statement Attending MD Statement: examined this patient, discuss w/resident/PA/MIXER RUNNER, agreed w/resident/PA/MIXER RUNNER, discussed with family, reviewed EMR data (avail), discussed w/ nursing, discussed w/case mgmt Attending Assessment/Plan: pt with pain in the chest area this am , found to be cold and clammy . Likely withdrawl from opiates and cocaine. Given 2 mg morphine and put on fentanyl patch. Feeling better now after above intervention. will cont prn morphine for now and will taper slowly. d/w pt and family at bedside the care plan.
[2016-10-12 17:15] VITALS: BP 145/69
[2016-10-13 00:21] VITALS: BP 118/50
[2016-10-13 07:56] VITALS: BP 124/66
[2016-10-13 07:58] LABS: ABSOLUTE BASOPHIL COUNT 0 /CUMM (0.0-0.2); ABSOLUTE EOSINOPHIL COUNT 0.3 /CUMM (0.0-0.7); ABSOLUTE LYMPH COUNT 2.4 /CUMM (1.2-3.4); ABSOLUTE MONOCYTE COUNT 1.6 /CUMM (0.10-0.60); BASOPHIL % 0.2 % (0.0-2.0); EOSINOPHIL % 2.1 % (0-5); GRANULOCYTE % 69.9 % (42.2-75.2); HEMATOCRIT 34.9 % (42-52); MEAN CORPUSCULAR HGB 29.7 PG (27.0-31.0); MEAN CORPUSCULAR VOLUME 90.1 FL (80.0-94.0); MEAN PLATELET VOLUME 8.3 FL (7.4-10.4); PLATELET COUNT 307 /CUMM (130-400); RBC DISTRIBUTION WIDTH 13.6 % (11.5-14.5); RED BLOOD CELL CT 3.87 /CUMM (4.70-6.10); WHITE BLOOD CELL COUNT 14.4 /CUMM (4.8-10.8)
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
--- NOTE | 2016-10-13 10:59 | Patient Discharge Instructions ---
Discharge Instructions General Discharge Information You were seen/treated for: 1.Anoxic encephalopathy likely secondary to drug overdose 2.Acute hypoxic and hypercarbic respiratory failure 3.Elevated leukocytosis 4. Elevated bili and lipase 5.DICKSON 6. Chest pain Diet Continue normal diet: Yes Recommended Diet: Regular Activity Full Activity/No Limits: Yes Activity Self Limited: Yes Acute Coronary Syndrome Inclusion Criteria At DC or during hospital stay patient has or had the following: ACS DIAGNOSIS No Discharge Core Measures Meds if any: Prescribed or Continued at Discharge Meds if any: NOT Prescribed or Continued at Discharge Congestive Heart Failure Inclusion Criteria At DC or during hospital stay patient has or had the following: CHF DIAGNOSIS No Discharge Core Measures Meds if any: Prescribed or Continued at Discharge Meds if any: NOT Prescribed or Continued at Discharge Cerebrovascular accident Inclusion Criteria At DC or during hospital stay patient has or had the following: CVA/TIA Diagnosis No Discharge Core Measures Meds if any: Prescribed or Continued at Discharge Meds if any: NOT Prescribed or Continued at Discharge Venous thromboembolism Inclusion Criteria VTE Diagnosis No VTE Type NONE VTE Confirmed by (Test) NONE Discharge Core Measures - Per Current guidelines, there needs to be overlap - treatment for the first 5 days of Warfarin therapy. - If discharged on Warfarin prior to 5 days of - overlap therapy, the patient will need to be - assessed for post discharge needs including - *Post discharge parental anticoagulation - *Warfarin and/or parental anticoagulation education - *Follow up date to check INR post discharge At least 5 days overlap therapy as Inpatient No Meds if any: Prescribed or Continued at Discharge Note: Overlap Therapy is Warfarin and Anticoagulant Meds if any: NOT Prescribed or Continued at Discharge
--- NOTE | 2016-10-13 13:40 | PN- Att Addend ---
Attending MD Review Statement Attending Statement Attending MD Statement: examined this patient, discuss w/resident/PA/BINDER CUTTER HAND, agreed w/resident/PA/BINDER CUTTER HAND, discussed with family, reviewed EMR data (avail), discussed w/ nursing, discussed w/case mgmt Attending Assessment/Plan: Laboratory Tests 10/13/16 0610: CBC w Diff NO MAN DIFF REQ, RBC 3.87 L, MCV 90.1, MCH 29.7, RDW 13.6, MPV 8.3, Gran % 69.9, Lymphocytes % 16.6 L, Monocytes % 11.2 H, Eosinophils % 2.1, Basophils % 0.2, Absolute Granulocytes 10.0 H, Absolute Lymphocytes 2.4, Absolute Monocytes 1.6 H, Absolute Eosinophils 0.3, Absolute Basophils 0, PUBS MCHC 33.0 Vital Signs Date Time Temp Pulse Resp B/P B/P Pulse O2 O2 Flow FiO2 Mean Ox Delivery Rate 10/13 0756 97.5 86 18 124/66 95 10/13 0021 98.9 73 16 118/50 94 Room Air 10/12 1715 97.4 99 16 145/69 94 Room Air 10/12 1600 Room Air Pt seen and examined at bedside. d/w pt and patients family at bedside the care plan. pt currently on fentanyl patch 12mcg /hr. Will likely dc patient tomorrow. Will not dc him on narcotics. SW talking with pt and family about rehab options.
[2016-10-13 15:44] VITALS: BP 130/64
--- NOTE | 2016-10-13 19:54 | NUR ---
Multiple meetings with patient and both parents yesterday and today. Patient has finally verbalized that he has interest in a residential program. Isauro signed releases and appropriate clinical information FAXED to [facility], [facility] and [facility]. Isauro was scheduled to have a telephone interview with Emily this afternoon, and with [facility], tomorrow. Case discussed with medical team; patient will need to be narcotic free in order to enter into any tratment. Some concern that patient is not yet strong enough physically to manage 6-8 hours daily of treatment, but to patients credit he was up and ambulating in [place] sevral times today in order to build up endurance. Patient and family still considering possible IOP as an alternative, and all are aware that discharge will be tomorrow. Follow.
[2016-10-13 23:46] VITALS: BP 126/70
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
[2016-10-14 08:44] VITALS: BP 102/76
--- NOTE | 2016-10-14 13:58 | PN- Att Addend ---
Attending MD Review Statement Attending Statement Attending MD Statement: examined this patient, discuss w/resident/PA/ELEMENTARY SCIENCE TEACHER, agreed w/resident/PA/ELEMENTARY SCIENCE TEACHER, discussed with family, reviewed EMR data (avail), discussed w/ nursing, discussed w/case mgmt Attending Assessment/Plan: Vital Signs Date Time Temp Pulse Resp B/P B/P Pulse O2 O2 Flow FiO2 Mean Ox Delivery Rate 10/14 0844 99.2 96 18 102/76 95 Room Air 10/13 2346 98.6 89 12 126/70 96 Room Air 10/13 1544 98.6 85 14 130/64 95 Room Air Pt being dced to inpatient rehab at [facility]. Fentanyl patch was stopped yesterday noon and pt did not have any withdrawl symptoms. d/w pt and family the care plan. see dc summary for more details.
--- NOTE | 2016-10-14 14:08 | NUR ---
Late Entry: Aware of patients discharge earlier this afternoon. Luciana had a phone screen with [facility] in [place] earlier today, and afterward I was notified that patient had been accepted for admission this afternoon. Luciana's mom was going to transport him. Appropriate clinical had been FAXED to [facility] earlier; Luciana was instructed to bring all his discharge paperwork with him.
== END 2016-10-14 12:45 | DRG 917 ==
LOC: ERH 14:30 → 1NO 17:04 → CRI 17:04 → ERHI 17:04 → ENRESERV 19:28 → CRI 20:07 → 1NO 10-08 14:24 → ENPENDDIS 10-14 11:22 → 1NO 10-14 12:45
PROVIDERS: Emergency Medicine; Internal Medicine; Student in an Organized Health Care Education/Training Program; ADMIT Internal Medicine Pulmonary Disease
PROC: 0BH17EZ Insertion of Endotracheal Airway into Trachea, Via Natural or Artificial Opening (ICD-10-PCS; principal; 2016-10-04)
PROC: 5A1945Z Respiratory Ventilation, 24-96 Consecutive Hours (ICD-10-PCS; principal; 2016-10-04)
PROC: 5A12012 Performance of Cardiac Output, Single, Manual (ICD-10-PCS; 2016-10-04)
DX: T40.5X4A Poisoning by cocaine, undetermined, initial encounter (principal); J96.01 Acute respiratory failure with hypoxia; I46.9 Cardiac arrest, cause unspecified; R57.8 Other shock; J69.0 Pneumonitis due to inhalation of food and vomit; G92 Toxic encephalopathy; G93.1 Anoxic brain damage, not elsewhere classified; N17.9 Acute kidney failure, unspecified; E87.2 Acidosis; E87.5 Hyperkalemia; T40.2X4A Poisoning by other opioids, undetermined, initial encounter; F19.90 Other psychoactive substance use, unspecified, uncomplicated; Y92.003 Bedroom of unspecified non-institutional (private) residence as the place of occurrence of the external cause; F17.200 Nicotine dependence, unspecified, uncomplicated
CPT/HCPCS: 1NSP; CCU; 36415; 71120; 74176; 80307; 81001; 82436; 87040; 87070; 87086; 87389; 87449; 87450; 93005; 93010; 93306; 93970; 94799; 96374; 96375; 96376; 99291; G0480; J0131; J0456; J0610; J0696; J1644; J1720; J1815; J1885; J1940; J1953; J2270; J2310; J2405; J2920; J3010; J7040; J7042; J7060; J7120